=== PATIENT | male | born 1975 | race Caucasian/White ===

== ENCOUNTER 2020-05-15 19:08 | Emergency (ER) | payer OTHER ==
--- NOTE | 2020-05-15 21:09 | ED ---
Fever HPI - General Chief Complaint: Fever Stated Complaint: fever, Headache, dizziness Time Seen by Provider: 05/15/20 20:48 Source: patient, RN notes reviewed Mode of arrival: ambulatory Limitations: no limitations - History of Present Illness Initial Comments: 44-year-old white male, alert and oriented 4, no acute distress, states that he's had a fever on and off since , with sinus congestion, occasional cough. Patient states temperature at home has been up and down as high as 101. Has been taking Tylenol for body aches. Patient denies nausea vomiting or diarrhea, denies chest pain. Patient states he works for [employer]. Has had no sick contacts. Patient states he was cooking dinner and he turned his head he felt very dizzy and went down to the ground no LOC did not hit his head. No injuries. MD Complaint: fever (sinus congestion, headache) -: days(s) (3) Temperature Source: oral Associated Symptoms: headache, rhinorrhea, cough, other (vertigo) Treatments Prior to Arrival: Acetaminophen - Related Data Allergies Allergy/AdvReac Type Severity Reaction Status Date / Time No Known Allergies Allergy Verified 05/15/20 19:14 Review of Systems ROS Statement: Those systems with pertinent positive or pertinent negative responses have been documented in the HPI. ROS Other: All systems not noted in ROS Statement are negative. Past Medical History Past Medical History: Diabetes Mellitus History of Any Multi-Drug Resistant Organisms: None Reported Past Surgical History: Orthopedic Surgery Past Psychological History: No Psychological Hx Reported Smoking Status: Never smoker Past Alcohol Use History: None Reported Past Drug Use History: None Reported General Exam Limitations: no limitations General appearance: alert, in no apparent distress Head exam: Present: atraumatic, normocephalic, normal inspection Eye exam: Present: normal appearance, PERRL, EOMI. Absent: scleral icterus, conjunctival injection, periorbital swelling ENT exam: Present: normal exam, mucous membranes moist Neck exam: Present: normal inspection. Absent: tenderness, meningismus, lymphadenopathy Respiratory exam: Present: normal lung sounds bilaterally. Absent: respiratory distress, wheezes, rales, rhonchi, stridor Cardiovascular Exam: Present: tachycardia GI/Abdominal exam: Present: soft, normal bowel sounds. Absent: distended, tenderness, guarding, rebound, rigid Extremities exam: Present: normal inspection, full ROM, normal capillary refill. Absent: tenderness, pedal edema, joint swelling, calf tenderness Back exam: Present: normal inspection, full ROM. Absent: tenderness, CVA tenderness (R), CVA tenderness (L) Neurological exam: Present: alert, oriented X3, CN II-XII intact Psychiatric exam: Present: normal affect, normal mood Skin exam: Present: warm, dry, intact, normal color. Absent: rash, cyanosis, diaphoretic Course Vital Signs 05/15/20 05/15/20 19:11 22:13 Temperature 98.2 F Pulse Rate 106 H 95 Respiratory 20 20 Rate Blood Pressure 162/87 145/86 O2 Sat by Pulse 97 96 Oximetry Medical Decision Making - Medical Decision Making Patient covid +, pt meets criteria for monoclonal antibodies infusion with BMI greater than 35. Patient agreeable to this treatment plan and will be discharged with follow-up with primary care doctor and directions to return to the emergency room if worsening symptoms. Case discussed with Dr. Bermudez who is agreeable to this plan. Heart rate of 90, oxygen saturation 97% on room air - Lab Data Lab Results 05/15/20 05/15/20 Range/Units 21:00 22:13 POC Glucose (mg/dL) 251 H (75-99) mg/dL POC Glu Market Survey Representative ID Karen Hatch Coronavirus (PCR) Detected A (Not Detectd) - EKG Data EKG shows normal: sinus rhythm, intervals (Ventricular rate of 90, MT interval 0 .168, QRS of 0.88, QTc 0.413) Disposition Clinical Impression: COVID-19 Disposition: HOME SELF-CARE Condition: Good Instructions (If sedation given, give patient instructions): Coronavirus Disease 2019 (COVID-19) Additional Instructions: Increase your fluid intake, take vitamin D, vitamin C, and zinc. Follow-up with her primary care doctor in 1 week. Return to the emergency room if worsening symptoms. Is patient prescribed a controlled substance at d/c from ED?: No Referrals: None,Stated [Primary Care Provider] - 1-2 days
[2020-05-15 22:17] LABS: Glucose,Whole Blood 251 mg/dL (75-99)
[2020-05-15] MEDS ORDERED: BAMLANIVIMAB (EUA) 700 MG, ETESEVIMAB (EUA) 1,400 MG in SODIUM CHLORIDE 0.9% 50 ML IVPB ONE (23:00)
[2020-05-15] MEDS ORDERED: SODIUM CHLORIDE 0.9% 1,000 ML IV ONE (23:14)
[2020-05-16 00:50] VITALS: BP 123/65; PULSE 77; RESP 20; TEMP 98.9
== END 2020-05-16 00:40 | disposition home or self-care (01) ==
LOC: EC 19:08
DX: U07.1 COVID-19 (principal)
CPT/HCPCS: 36415; 93005; 87635; 99283; 96365; 96361; Q0245

== ENCOUNTER 2021-08-21 16:35 | Inpatient (IN) | payer OTHER ==
[2021-08-21] MEDS ORDERED: SODIUM CHLORIDE 0.9% 2,000 ML IV STA (18:53)
[2021-08-21] MEDS ORDERED: VANCOMYCIN IV PER PHARMACY 1 EACH MISC MISCELLANE PRN (18:53)
[2021-08-21] MEDS ORDERED: ONDANSETRON ODT 8 MG TAB.RAPDIS PO STA (18:53)
[2021-08-21] MEDS ORDERED: MORPHINE SULFATE 4 MG/ML SYRINGE IV STA (18:53)
--- NOTE | 2021-08-21 19:00 | ED ---
Abdominal Pain HPI - General Chief Complaint: Abdominal Pain Stated Complaint: Fall, Abd mass Time Seen by Provider: 08/21/21 18:45 Source: patient, RN notes reviewed Mode of arrival: ambulatory Limitations: no limitations - History of Present Illness Initial Comments: This is a pleasant, 45-year-old diabetic male who presents to emergency dep artment complaining of lower abdominal pain. Patient states that 2 days ago he fell into the arm of his couch by accident but had no significant injury. He did have a little irritation to his left lower quadrant area. Patient states he was at work last night doing some ending and lifting and noticed pain in the right lower quadrant area which is now spread across the lower abdomen. Discomfort also radiated to the right lower back and onto the anterior aspect of the right thigh today. Patient has noticed a reddened, hardened area to the lower abdomen. Some shaking chills. No headache, no fever or chills, no changes in vision or hearing, no sore throat or difficulty with speech, no neck pain, no chest pain or shortness of breath,, no nausea or vomiting, no changes in urination or bowel movements, no numbness or tingling, no extremity pain, no skin rashes or lesions. - Related Data Home Medications Medication Instructions Recorded Confirmed Acetaminophen Tab [Tylenol Tab] 1,000 mg PO Q6HR PRN 08/21/21 08/21/21 Ibuprofen [Motrin Ib] 400 - 600 mg PO Q8H PRN 08/21/21 08/21/21 Allergies Allergy/AdvReac Type Severity Reaction Status Date / Time No Known Allergies Allergy Verified 08/21/21 21:10 Review of Systems ROS Statement: Those systems with pertinent positive or pertinent negative responses have been documented in the HPI. ROS Other: All systems not noted in ROS Statement are negative. Past Medical History Past Medical History: Diabetes Mellitus History of Any Multi-Drug Resistant Organisms: None Reported Past Surgical History: Orthopedic Surgery Past Psychological History: No Psychological Hx Reported Smoking Status: Never smoker Past Alcohol Use History: None Reported Past Drug Use History: None Reported General Exam - General Exam Comments Initial Comments: 45-year-old male who appears to be somewhat ill. Patient is tachycardic, appea rs to be in distress. Appears adequate peripheral perfusion. Capillary refill less than 2 seconds. Limitations: no limitations General appearance: in distress Head exam: Present: atraumatic, normocephalic, normal inspection Eye exam: Present: normal appearance, PERRL, EOMI. Absent: scleral icterus, conjunctival injection, periorbital swelling ENT exam: Present: normal exam, mucous membranes moist Neck exam: Present: normal inspection, full ROM. Absent: tenderness, meningismus, lymphadenopathy Respiratory exam: Present: normal lung sounds bilaterally. Absent: respiratory distress, wheezes, rales, rhonchi, stridor, chest wall tenderness, accessory muscle use Cardiovascular Exam: Present: normal rhythm, tachycardia, normal heart sounds. Absent: systolic murmur, diastolic murmur, rubs, gallop, clicks GI/Abdominal exam: Present: soft, tenderness (Tender across the lower abdomen. Erythematous/indurated area noted which is quite widespread.), normal bowel sounds. Absent: distended, guarding, rebound, rigid Extremities exam: Present: normal inspection, full ROM, normal capillary refill. Absent: tenderness, pedal edema, joint swelling, calf tenderness Back exam: Present: normal inspection Neurological exam: Present: alert, oriented X3, CN II-XII intact Psychiatric exam: Present: normal affect, normal mood Skin exam: Present: warm, dry, intact, erythema (Erythema noted across lower abdomen does not involve the groin or scrotal area). Absent: normal color (Positive calor), rash Course Vital Signs 08/21/21 08/21/21 08/21/21 16:56 19:46 21:17 Temperature 99.8 F H Pulse Rate 112 H 108 H 105 H Respiratory 20 18 18 Rate Blood Pressure 150/75 129/85 109/71 O2 Sat by Pulse 97 96 93 L Oximetry - Reevaluation(s) Reevaluation #1: 08/21/21 20:31 Medical record is reviewed Symptoms are unchanged Patient is informed of results and questions answered Patient in no distress No evidence of necrotizing fasciitis on computed tomography scan - Consultations Consultation #1: Case discussed in detail with Dr. Rabago from [facility]. At subs admission of the patient. Medical Decision Making - Medical Decision Making Patient presents with symptomology consistent with cellulitis of lower abdominal wall. Patient did have a mild injury from the arm of a couch 2 days ago after he had a mechanical trip and fall. Unsure if this is related to the infectious process. There is no notable break in skin integrity. Sepsis workup ordered. Antibiotics ordered. Patient has diet-controlled diabetes. Patient has extensive cellulitis to lower abdomen. We'll admit the patient for IV antibiotics and reevaluation. The case was discussed in detail with ED attending physician. Presentation, findings, treatment plan discussed in detail. Patient also seen and assessed by the ED attending physician, Dr. Alvarez - Lab Data Result diagrams: 08/21/21 19:22 08/21/21 19: Lab Results 08/21/21 08/21/21 08/21/21 Range/Units 19: 19: 19:22 WBC 10.5 (3.8-10.6) k/uL RBC 4.55 (4.30-5.90) m/uL Hgb 14.7 (13.0-17.5) gm/dL Hct 42.1 (39.0-53.0) % MCV 92.5 (80.0-100.0) fL MCH 32.2 (25.0-35.0) pg MCHC 34.8 (31.0-37.0) g/dL RDW 14.7 (11.5-15.5) % Plt Count 130 L (150-450) k/uL MPV 7.8 Neutrophils % 88 % Lymphocytes % 7 % Monocytes % 4 % Eosinophils % 0 % Basophils % 0 % Neutrophils # 9.2 H (1.3-7.7) k/uL Lymphocytes # 0.7 L (1.0-4.8) k/uL Monocytes # 0.5 (0-1.0) k/uL Eosinophils # 0.0 (0-0.7) k/uL Basophils # 0.0 (0-0.2) k/uL ESR 41 H (0-15) mm/hr Sodium 131 L (137-145) mmol/L Potassium 4.0 (3.5-5.1) mmol/L Chloride 103 (98-107) mmol/L Carbon Dioxide 24 (22-30) mmol/L Anion Gap 4 mmol/L BUN 8 L (9-20) mg/dL Creatinine 0.52 L (0.66-1.25) mg/dL Est GFR (CKD-EPI)AfAm >90 (>60 ml/min/1.73 sqM) Est GFR (CKD-EPI)NonAf >90 (>60 ml/min/1.73 sqM) Glucose 305 H (74-99) mg/dL Plasma Lactic Acid Reid 1.9 (0.7-2.0) mmol/L Calcium 8.0 L (8.4-10.2) mg/dL Total Bilirubin 2.3 H (0.2-1.3) mg/dL AST 47 (17-59) U/L ALT 28 (4-49) U/L Alkaline Phosphatase 140 H (38-126) U/L C-Reactive Protein 12.9 H (<1.0) mg/dL Total Protein 6.2 L (6.3-8.2) g/dL Albumin 2.8 L (3.5-5.0) g/dL Urine Color Urine Appearance (Clear) Urine pH (5.0-8.0) Ur Specific [place] (1.001-1.035) Urine Protein (Negative) Urine Glucose (UA) (Negative) Urine Ketones (Negative) Urine Blood (Negative) Urine Nitrite (Negative) Urine Bilirubin (Negative) Urine Urobilinogen (<2.0) mg/dL Ur Leukocyte Esterase (Negative) Urine RBC (0-5) /hpf Urine WBC (0-5) /hpf Urine WBC Clumps (None) /hpf Ur Squamous Epith Cells (0-4) /hpf 08/21/21 Range/Units 20:11 WBC (3.8-10.6) k/uL RBC (4.30-5.90) m/uL Hgb (13.0-17.5) gm/dL Hct (39.0-53.0) % MCV (80.0-100.0) fL MCH (25.0-35.0) pg MCHC (31.0-37.0) g/dL RDW (11.5-15.5) % Plt Count (150-450) k/uL MPV Neutrophils % % Lymphocytes % % Monocytes % % Eosinophils % % Basophils % % Neutrophils # (1.3-7.7) k/uL Lymphocytes # (1.0-4.8) k/uL Monocytes # (0-1.0) k/uL Eosinophils # (0-0.7) k/uL Basophils # (0-0.2) k/uL ESR (0-15) mm/hr Sodium (137-145) mmol/L Potassium (3.5-5.1) mmol/L Chloride (98-107) mmol/L Carbon Dioxide (22-30) mmol/L Anion Gap mmol/L BUN (9-20) mg/dL Creatinine (0.66-1.25) mg/dL Est GFR (CKD-EPI)AfAm (>60 ml/min/1.73 sqM) Est GFR (CKD-EPI)NonAf (>60 ml/min/1.73 sqM) Glucose (74-99) mg/dL Plasma Lactic Acid Reid (0.7-2.0) mmol/L Calcium (8.4-10.2) mg/dL Total Bilirubin (0.2-1.3) mg/dL AST (17-59) U/L ALT (4-49) U/L Alkaline Phosphatase (38-126) U/L C-Reactive Protein (<1.0) mg/dL Total Protein (6.3-8.2) g/dL Albumin (3.5-5.0) g/dL Urine Color Yellow Urine Appearance Cloudy (Clear) Urine pH 6.5 (5.0-8.0) Ur Specific [place] 1.040 H (1.001-1.035) Urine Protein 1+ H (Negative) Urine Glucose (UA) 4+ H (Negative) Urine Ketones Trace H (Negative) Urine Blood Small H (Negative) Urine Nitrite Negative (Negative) Urine Bilirubin Negative (Negative) Urine Urobilinogen 6.0 (<2.0) mg/dL Ur Leukocyte Esterase Large H (Negative) Urine RBC 45 H (0-5) /hpf Urine WBC >182 H (0-5) /hpf Urine WBC Clumps Occasional H (None) /hpf Ur Squamous Epith Cells 2 (0-4) /hpf - Radiology Data Radiology results: report reviewed, image reviewed Computed tomography scan shows subcutaneous edema over the anterior abdomen and focal increased density which could relate to phlegmon over the anterior lower abdomen, some mesenteric edema in the abdomen could be developing sinusitis, splenic varices consistent with portal hypertension. Large varicose umbilical vein. Some fat stranding and increased density focally along the anterior lower subcutaneous fat measuring 5 cm. No mention of subcutaneous gas Disposition Clinical Impression: Abdominal wall cellulitis, Uncontrolled diabetes mellitus, Urinary tract infection Disposition: ADMITTED IP TO THIS HOSP Condition: Stable Is patient prescribed a controlled substance at d/c from ED?: No Referrals: None,Stated [Primary Care Provider] - 1-2 days Time of Disposition: 20:32 Decision to Admit Reason: Admit from EC Decision Time: 20:32
[2021-08-21] MEDS ORDERED: PIPERACILLIN-TAZOBACTAM 4.5 GM in SODIUM CHLORIDE 0.9% 100 ML IVPB STA (19:04)
[2021-08-21] MEDS ORDERED: VANCOMYCIN 2,000 MG in SODIUM CHLORIDE 0.9% 500 ML 500 ML IVPB STA (19:08)
[2021-08-21 19:51] LABS: Basophils % (A) 0 %; Eosinophils % (A) 0 %; HCT 42.1 % (39.0-53.0); HGB 14.7 gm/dL (13.0-17.5); Lymphocytes # (A) 0.7 k/uL (1.0-4.8); Lymphocytes % (A) 7 %; MCH 32.2 pg (25.0-35.0); MCHC 34.8 g/dL (31.0-37.0); MCV 92.5 fL (80.0-100.0); Mean Platelet Volume 7.8; Monocytes # (A) 0.5 k/uL (0-1.0); Monocytes % (A) 4 %; Neutrophils # (A) 9.2 k/uL (1.3-7.7); Neutrophils % (A) 88 %; Platelet Count 130 k/uL (150-450); RBC 4.55 m/uL (4.30-5.90); RDW 14.7 % (11.5-15.5); WBC 10.5 k/uL (3.8-10.6)
--- NOTE | 2021-08-21 19:58 | CT ---
EXAMINATION TYPE: CT abdomen pelvis w con DATE OF EXAM: 08/21/2021 COMPARISON: None HISTORY: abdominal pain/abdominal wall cellulitis CT DLP: [id number] mGycm Automated exposure control for dose reduction was used. CONTRAST: Performed with IV Contrast, patient injected with 70ml mL of Isovue 300. Images obtained from the diaphragm to the floor the pelvis with IV contrast. The lung bases are clear. No pleural effusion. There is elevated left diaphragm. Spleen is enlarged a nd measures 21 cm. Liver shows no focal defect. Gallbladder appears normal. No pancreatic mass. The s tomach is intact. There are prominent vessels at the splenic hilum that could relate to varices and p ortal venous hypertension. There is no adrenal mass. Kidneys have normal size. No hydronephrosis. There is 2 mm calculus lower p ole right kidney. Ureters are not dilated. There is no retroperitoneal adenopathy. There is subcutane ous edema over the anterior abdomen. There is some fat stranding and increased density focally in the anterior lower subcutaneous fat. This measures 5 cm. The bladder distends smoothly. No inguinal hernia. No free fluid in the pelvis. There is large tortuo us umbilical vein. No bowel obstruction. There are a few sigmoid diverticula. Appendix appears normal. There is no ascit es. There is some mild mesenteric edema. The lumbar vertebrae have normal alignment. No compression f racture. Posterior element are intact. The hip joints are intact. IMPRESSION: There is moderate splenomegaly. Elevated left diaphragm could relate to some diaphragm paralysis. Nonobstructing right renal calculus. Subcutaneous edema over the anterior abdomen and focal increased density could relate to phlegmon ove r the anterior lower midline abdomen. There is some mild mesenteric edema in the abdomen. This could be developing sign of ascites. Splenic varices that is consistent with portal venous hypertension. 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
[2021-08-21 20:17] LABS: ALT 28 U/L (4-49); AST 47 U/L (17-59); African American GFR (CKD) >90 (>60 ml/min/1.73 sqM); Albumin 2.8 g/dL (3.5-5.0); Alkaline Phosphatase 140 U/L (38-126); Anion Gap 4 mmol/L; Blood Urea Nitrogen 8 mg/dL (9-20); Carbon Dioxide 24 mmol/L (22-30); Chloride 103 mmol/L (98-107); Glucose 305 mg/dL (74-99); Non-African American GFR(CKD) >90 (>60 ml/min/1.73 sqM); Sodium 131 mmol/L (137-145); Total Bilirubin 2.3 mg/dL (0.2-1.3); Total Protein 6.2 g/dL (6.3-8.2)
[2021-08-21 20:33] LABS: Erythrocyte Sedimentation Rate 41 mm/hr (0-15)
[2021-08-21 20:36] LABS: Appearance,Urine Cloudy (Clear); Bilirubin,Urine Negative (Negative); Blood,Urine Small (Negative); Color,Urine Yellow; Glucose,Urine (UA) 4+ (Negative); Ketones,Urine Trace (Negative); Leukocyte Esterase,Urine Large (Negative); Nitrite,Urine Negative (Negative); PH, Urine 6.5 (5.0-8.0); Protein,Urine 1+ (Negative); RBC,Urine 45 /hpf (0-5); Squamous Epithelial Cell,Urine 2 /hpf (0-4); WBC,Urine >182 /hpf (0-5)
[2021-08-21 20:47] LABS: C Reactive Protein 12.9 mg/dL (<1.0)
[2021-08-21] MEDS ORDERED: INSULN ASP PRT/INSULIN ASPART 100 UNIT/ML 10 ML VIAL SQ ONE (21:54)
[2021-08-21] MEDS ORDERED: NALOXONE 0.4 MG/ML 1 ML VIAL IV PRN (22:02)
[2021-08-21] MEDS ORDERED: ONDANSETRON 4 MG/2 ML VIAL IVP PRN (22:02)
[2021-08-21] MEDS: SODIUM CHLORIDE 0.9% 1,000 ML IV SCH (23:00)
[2021-08-22] MEDS: HEPARIN SODIUM,PORCINE/PF 5,000 UNIT/0.5 ML SYRINGE SQ SCH ×4 (01:05→23:02)
[2021-08-22] MEDS ORDERED: diphenhydrAMINE 25 MG CAP PO STA (03:10)
--- NOTE | 2021-08-22 03:29 | P.HPIM ---
History of Present Illness H&P Date: 08/21/21 Chief Complaint: Abdominal pain 45-year-old male with dietary controlled diabetes Patient comes in with couple day history of worsening erythema pain in the lower abdomen he reports incisional lost 60 pounds of weight with exercising and diet after he lost weight he started feeling a lump superficial in his abdominal wall. He recently sustained an accidental fall hit the arm with the couch few days ago he didn't think much of it however yesterday he started noticing increasing erythema and discomfort in the lower abdomen as he was exercising later with lifting weights he noticed excruciating pain in the lower abdomen which continued to get worse today for which she decided to come in for evaluation as he noted that he was having chills today with increased erythema in the lower abdomen and skin became more hard as a big lump that he's feeling in the abdominal wall of the lower abdomen associated with some chills and low-grade fever denies any nausea vomiting denies any other abdominal pain or chest pain denies any trouble breathing denies any hematuria or bloody bowel movement. In the ED he was found to have significant cellulitis and induration of the ab dominal wall blood work showed no leukocytosis but did reveal some elevated bilirubin and blood sugar CT imaging of the abdomen showed fat stranding in the abdominal wall along with evidence of portal venous hypertension and large varicose umbilical vein and splenomegaly also noted to have nonobstructing right renal calculus Urine analysis reflects evidence of irritation to the urinary tract from above- mentioned renal calculus Cultures were obtained in the ED and patient was initiated on vancomycin Review of Systems Pertinent positives as noted in HPI. All other systems were reviewed and are negative Past Medical History Past Medical History: Diabetes Mellitus History of Any Multi-Drug Resistant Organisms: None Reported Past Surgical History: Orthopedic Surgery Past Psychological History: No Psychological Hx Reported Smoking Status: Never smoker Past Alcohol Use History: None Reported Past Drug Use History: None Reported - Past Family History family Family Medical History: No Reported History Medications and Allergies Home Medications Medication Instructions Recorded Confirmed Type Acetaminophen Tab [Tylenol Tab] 1,000 mg PO Q6HR PRN 08/21/21 08/21/21 History Ibuprofen [Motrin Ib] 400 - 600 mg PO Q8H PRN 08/21/21 08/21/21 History Allergies Allergy/AdvReac Type Severity Reaction Status Date / Time No Known Allergies Allergy Verified 08/21/21 21:10 Physical Exam Vitals: Vital Signs Temp Pulse Resp BP Pulse Ox 08/21/21 21:17 105 H 18 109/71 93 L 08/21/21 19:46 108 H 18 129/85 96 08/21/21 16:56 99.8 F H 112 H 20 150/75 97 Intake and Output 08/21/21 08/21/21 08/21/21 06:59 14:59 22:59 Other: Weight 131.542 kg Constitutional: No acute distress, conversant, pleasant Eyes: Anicteric sclerae, moist conjunctiva, Pupils equal round reactive to light ENMT: NC/AT Oropharynx clear, no erythema, or exudates Neck: Supple, no masses, or JVD No carotid bruits No thyromegaly Lungs: Clear to auscultation Clear to percussion Normal respiratory effort, no accessory muscle use Cardiovascular: Heart regular in rate and rhythm, No murmurs, gallops, or rubs No peripheral edema Abdominal: Soft Nontender, no guarding, rebound or rigidity Abdomen moving with respiration Normoactive bowel sounds No hepatomegaly, No splenomegaly No palpable mass No abdominal wall hernia noted Skin: Significant induration and erythema of the lower abdominal wall no open wounds or cuts no drainage tender to palpation warm to the touch otherwise Normal temperature, tone, texture, turgor Extremities: No digital cyanosis No clubbing Pedal pulses intact and symmetrical Radial pulses intact and symmetrical No calf tenderness Psychiatric: Alert and oriented to person, place and time Appropriate affect fair judgement Neuro Muscles Strength 5/5 in all 4 extremities Sensation to light touch grossly present throughout Cranial nerves II-XII grossly intact No focal sensory deficits Lymphatics: no palpable cervical or supraclavicular , or inguinal lymph nodes Results CBC & Chem 7: 08/21/21 19:22 08/21/21 19:22 Labs: Abnormal Lab Results - Last 24 Hours (Table) 08/21/21 08/21/21 08/21/21 Range/Units 19:22 19:22 20:11 Plt Count 130 L (150-450) k/uL Neutrophils # 9.2 H (1.3-7.7) k/uL Lymphocytes # 0.7 L (1.0-4.8) k/uL ESR 41 H (0-15) mm/hr Sodium 131 L (137-145) mmol/L BUN 8 L (9-20) mg/dL Creatinine 0.52 L (0.66-1.25) mg/dL Glucose 305 H (74-99) mg/dL Calcium 8.0 L (8.4-10.2) mg/dL Total Bilirubin 2.3 H (0.2-1.3) mg/dL Alkaline Phosphatase 140 H (38-126) U/L C-Reactive Protein 12.9 H (<1.0) mg/dL Total Protein 6.2 L (6.3-8.2) g/dL Albumin 2.8 L (3.5-5.0) g/dL Ur Specific [place] 1.040 H (1.001-1.035) Urine Protein 1+ H (Negative) Urine Glucose (UA) 4+ H (Negative) Urine Ketones Trace H (Negative) Urine Blood Small H (Negative) Ur Leukocyte Esterase Large H (Negative) Urine RBC 45 H (0-5) /hpf Urine WBC >182 H (0-5) /hpf Urine WBC Clumps Occasional H (None) /hpf Assessment and Plan Assessment: Abdominal wall cellulitis Follow-up cultures Initiated empirically on vancomycin IV fluid hydration with normal saline Pain control with opiates CT of the abdomen showed no evidence of necrotizing fasciitis orderline diabetes Check A1c Insulin sliding scale DVT prophylaxis heparin subcu 3 times a day Full code
[2021-08-22] MEDS ORDERED: PIPERACILLIN-TAZOBACTAM 3.375 GM in SODIUM CHLORIDE 0.9% 100 ML IVPB SCH (04:00)
[2021-08-22 04:01] LABS: Glucose,Whole Blood 278 mg/dL (70-110)
[2021-08-22] MEDS ORDERED: VANCOMYCIN 2,000 MG in SODIUM CHLORIDE 0.9% 500 ML 500 ML IVPB SCH (05:00)
[2021-08-22 05:55] LABS: Basophils % (A) 0 %; Eosinophils % (A) 0 %; HCT 39.3 % (39.0-53.0); HGB 13.6 gm/dL (13.0-17.5); Lymphocytes # (A) 0.9 k/uL (1.0-4.8); Lymphocytes % (A) 9 %; MCH 32.4 pg (25.0-35.0); MCHC 34.6 g/dL (31.0-37.0); MCV 93.6 fL (80.0-100.0); Mean Platelet Volume 8.2; Monocytes # (A) 0.5 k/uL (0-1.0); Monocytes % (A) 5 %; Neutrophils # (A) 9.2 k/uL (1.3-7.7); Neutrophils % (A) 85 %; Platelet Count 121 k/uL (150-450); RDW 14.8 % (11.5-15.5); WBC 10.7 k/uL (3.8-10.6)
[2021-08-22 06:10] LABS: African American GFR (CKD) >90 (>60 ml/min/1.73 sqM); Anion Gap 4 mmol/L; Blood Urea Nitrogen 9 mg/dL (9-20); Calcium 7.5 mg/dL (8.4-10.2); Carbon Dioxide 23 mmol/L (22-30); Chloride 104 mmol/L (98-107); Glucose 250 mg/dL (74-99); Non-African American GFR(CKD) >90 (>60 ml/min/1.73 sqM); Potassium 3.8 mmol/L (3.5-5.1); Sodium 131 mmol/L (137-145)
[2021-08-22 06:42] LABS: Glucose,Whole Blood 248 mg/dL (70-110)
[2021-08-22] MEDS: INSULIN ASPART (NovoLOG) 100 UNIT/ML VIAL SQ SCH ×4 (07:44→22:08)
[2021-08-22 11:41] LABS: Glucose,Whole Blood 313 mg/dL (70-110)
--- NOTE | 2021-08-22 11:46 | P.PN ---
Subjective Patient was examined at bedside denies any fever, chills, nausea or vomiting. He complains of subjective fevers at home. He came in complaining of abdominal cellulitis not really changed over the last 24 hours continues to be on IV antibiotics. Patient states that he lost approximately 100 pounds over the course of 2 years. He stated that he had a small bump and unfortunately had a mechanical fall and soon after notices the cellulitis Objective - Vital Signs Vital signs: Vital Signs Temp 99.0 F 08/22/21 08:00 Pulse 96 08/22/21 08:00 Resp 16 08/22/21 08:00 BP 127/70 08/22/21 08:00 Pulse Ox 93 L 08/22/21 08:00 FiO2 Intake & Output 08/21/21 08/22/21 08/22/21 18:59 06:59 18:59 Weight 131.542 kg 131.542 kg Other: Voiding Method Urinal Urinal - Exam Gen. patient is awake alert oriented 3 Cardio normal S1/S2 Respiratory no wheezing or rhonchi appreciated Abdomen soft, nontender Skin erythema no drainage noted and tender - cellulitis changes Neuro no deficits noted - Labs CBC & Chem 7: 08/22/21 05:29 08/22/21 05:29 Labs: Abnormal Lab Results - Last 24 Hours (Table) 08/21/21 08/21/21 08/21/21 Range/Units 19:22 19:22 20:11 WBC (3.8-10.6) k/uL RBC (4.30-5.90) m/uL Plt Count 130 L (150-450) k/uL Neutrophils # 9.2 H (1.3-7.7) k/uL Lymphocytes # 0.7 L (1.0-4.8) k/uL ESR 41 H (0-15) mm/hr Sodium 131 L (137-145) mmol/L BUN 8 L (9-20) mg/dL Creatinine 0.52 L (0.66-1.25) mg/dL Glucose 305 H (74-99) mg/dL POC Glucose (mg/dL) (70-110) mg/dL Hemoglobin A1c (0.0-6.0) % Calcium 8.0 L (8.4-10.2) mg/dL Total Bilirubin 2.3 H (0.2-1.3) mg/dL Alkaline Phosphatase 140 H (38-126) U/L C-Reactive Protein 12.9 H (<1.0) mg/dL Total Protein 6.2 L (6.3-8.2) g/dL Albumin 2.8 L (3.5-5.0) g/dL Ur Specific [place] 1.040 H (1.001-1.035) Urine Protein 1+ H (Negative) Urine Glucose (UA) 4+ H (Negative) Urine Ketones Trace H (Negative) Urine Blood Small H (Negative) Ur Leukocyte Esterase Large H (Negative) Urine RBC 45 H (0-5) /hpf Urine WBC >182 H (0-5) /hpf Urine WBC Clumps Occasional H (None) /hpf 08/22/21 08/22/21 08/22/21 Range/Units 03:59 05:29 05:29 WBC 10.7 H (3.8-10.6) k/uL RBC 4.20 L (4.30-5.90) m/uL Plt Count 121 L (150-450) k/uL Neutrophils # 9.2 H (1.3-7.7) k/uL Lymphocytes # 0.9 L (1.0-4.8) k/uL ESR (0-15) mm/hr Sodium 131 L (137-145) mmol/L BUN (9-20) mg/dL Creatinine 0.53 L (0.66-1.25) mg/dL Glucose 250 H (74-99) mg/dL POC Glucose (mg/dL) 278 H (70-110) mg/dL Hemoglobin A1c (0.0-6.0) % Calcium 7.5 L (8.4-10.2) mg/dL Total Bilirubin (0.2-1.3) mg/dL Alkaline Phosphatase (38-126) U/L C-Reactive Protein (<1.0) mg/dL Total Protein (6.3-8.2) g/dL Albumin (3.5-5.0) g/dL Ur Specific [place] (1.001-1.035) Urine Protein (Negative) Urine Glucose (UA) (Negative) Urine Ketones (Negative) Urine Blood (Negative) Ur Leukocyte Esterase (Negative) Urine RBC (0-5) /hpf Urine WBC (0-5) /hpf Urine WBC Clumps (None) /hpf 08/22/21 08/22/21 Range/Units 05:29 06:40 WBC (3.8-10.6) k/uL RBC (4.30-5.90) m/uL Plt Count (150-450) k/uL Neutrophils # (1.3-7.7) k/uL Lymphocytes # (1.0-4.8) k/uL ESR (0-15) mm/hr Sodium (137-145) mmol/L BUN (9-20) mg/dL Creatinine (0.66-1.25) mg/dL Glucose (74-99) mg/dL POC Glucose (mg/dL) 248 H (70-110) mg/dL Hemoglobin A1c 9.6 H (0.0-6.0) % Calcium (8.4-10.2) mg/dL Total Bilirubin (0.2-1.3) mg/dL Alkaline Phosphatase (38-126) U/L C-Reactive Protein (<1.0) mg/dL Total Protein (6.3-8.2) g/dL Albumin (3.5-5.0) g/dL Ur Specific [place] (1.001-1.035) Urine Protein (Negative) Urine Glucose (UA) (Negative) Urine Ketones (Negative) Urine Blood (Negative) Ur Leukocyte Esterase (Negative) Urine RBC (0-5) /hpf Urine WBC (0-5) /hpf Urine WBC Clumps (None) /hpf Microbiology - Last 24 Hours (Table) 08/21/21 20:11 Urine Culture - Preliminary Urine,Voided Assessment and Plan Assessment: Assessment: #1 abdominal wall cellulitis #2 diabetes mellitus type 2 with A1c 9.6 #3 hyperlipidemia #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
[2021-08-22] MEDS: MORPHINE SULFATE 4 MG/ML SYRINGE IV PRN (12:54)
[2021-08-22 13:12] VITALS: BMI 41.5
[2021-08-22 16:54] LABS: Glucose,Whole Blood 301 mg/dL (70-110)
[2021-08-22] MEDS: SODIUM CHLORIDE 0.9% 1,000 ML IV SCH ×2 (20:42→21:06)
[2021-08-22 20:43] LABS: Glucose,Whole Blood 331 mg/dL (70-110)
[2021-08-22] MEDS ORDERED: diphenhydrAMINE 50 MG CAP PO PRN (20:52)
[2021-08-22] MEDS ORDERED: INSULIN DETEMIR (LEVEMIR) 100 UNIT/ML SYR SQ SCH (21:00)
[2021-08-22] MEDS: diphenhydrAMINE 25 MG CAP PO PRN (22:09)
--- NOTE | 2021-08-22 22:54 | P.CONS ---
History of Present Illness - Reason for Consult Consult date: 08/22/21 Abdominal wall cellulitis Requesting physician: Americo Jimenez - Chief Complaint Abdominal wall pain swelling and redness x few days - History of Present Illness Pt Is a 45-year-old male presenting to the ER last evening for evaluation of lower abdominal pain apparently has been going on for the last 2 days patient mention that [place] days ago he fell into the arm of his couch by accident did not have any injury he did have little irritation to his left lower quadrant now for the patient has been working lifting and noticed pain in the right lower quadrant radiating across the lower abdominal patient is currently pain to be sharp intensity is almost 8 out of 10 and no radiation with associated swelling redness and no drainage with the symptom the patient presented to hospital on arrival to the ER the patient did have a low-grade fever of 99.8 F, the patient was tachycardic did have a white count of 10.7 with a left shift creatinine has been normal CRP was elevated 12.9 blood culture obtained which are currently pending the patient did have a CT of abdominal pelvis which did shows a subcutaneous edema over the anterior abdominal and focal increased density most likely phlegmon formation no intra-abdominal pathology patient was started on vancomycin and Zosyn has been admitted to hospital infectious disease was consulted for further management of antibiotic therapy Review of Systems Positive point has been mentioned in the HPI rest of the systems are negative Past Medical History Past Medical History: Diabetes Mellitus History of Any Multi-Drug Resistant Organisms: None Reported Past Surgical History: Orthopedic Surgery Past Anesthesia/Blood Transfusion Reactions: No Reported Reaction Past Psychological History: No Psychological Hx Reported Smoking Status: Never smoker Past Alcohol Use History: None Reported Past Drug Use History: None Reported - Past Family History family Family Medical History: No Reported History Medications and Allergies Home Medications Medication Instructions Recorded Confirmed Type Acetaminophen Tab [Tylenol Tab] 1,000 mg PO Q6HR PRN 08/21/21 08/21/21 History Ibuprofen [Motrin Ib] 400 - 600 mg PO Q8H PRN 08/21/21 08/21/21 History Allergies Allergy/AdvReac Type Severity Reaction Status Date / Time peanut Allergy Unknown Nausea & Verified 08/26/21 12:22 Vomiting Physical Exam Vitals: Vital Signs Temp Pulse Pulse Resp BP BP Pulse Ox 08/22/21 08:00 99.0 F 96 16 127/70 93 L 08/21/21 23:49 99.8 F H 104 H 16 127/72 94 L 08/21/21 21:17 105 H 18 109/71 93 L 08/21/21 19:46 108 H 18 129/85 96 08/21/21 16:56 99.8 F H 112 H 20 150/75 97 Intake and Output 08/21/21 08/22/21 08/22/21 22:59 06:59 14:59 Other: Voiding Method Urinal Urinal Weight 131.542 kg 131.542 kg GENERAL DESCRIPTION: Middle-aged male lying in bed, no distress. No tachypnea or accessory muscle of respiration use. HEENT: Shows Pallor , no scleral icterus. Oral mucous membrane is dry. No pharyngeal erythema or thrush NECK: Trachea central, no thyromegaly. LUNGS: Unlabored breathing. Clear to auscultation anteriorly. No wheeze or crackle. HEART: S1, S2, regular rate and rhythm. No loud murmur ABDOMEN: Soft, abdominal wall swelling redness and tenderness , no guarding or rigidity, no organomegaly EXTREMITIES: No edema of feet. SKIN: No rash, no masses palpable. NEUROLOGICAL: The patient is awake, alert, oriented x3, mood and affect normal. Results CBC & Chem 7: 08/26/21 05:35 08/26/21 05:35 Labs: Abnormal Lab Results - Last 24 Hours (Table) 08/21/21 08/21/21 08/21/21 Range/Units 19:22 19:22 20:11 WBC (3.8-10.6) k/uL RBC (4.30-5.90) m/uL Plt Count 130 L (150-450) k/uL Neutrophils # 9.2 H (1.3-7.7) k/uL Lymphocytes # 0.7 L (1.0-4.8) k/uL ESR 41 H (0-15) mm/hr Sodium 131 L (137-145) mmol/L BUN 8 L (9-20) mg/dL Creatinine 0.52 L (0.66-1.25) mg/dL Glucose 305 H (74-99) mg/dL POC Glucose (mg/dL) (70-110) mg/dL Hemoglobin A1c (0.0-6.0) % Calcium 8.0 L (8.4-10.2) mg/dL Total Bilirubin 2.3 H (0.2-1.3) mg/dL Alkaline Phosphatase 140 H (38-126) U/L C-Reactive Protein 12.9 H (<1.0) mg/dL Total Protein 6.2 L (6.3-8.2) g/dL Albumin 2.8 L (3.5-5.0) g/dL Ur Specific [place] 1.040 H (1.001-1.035) Urine Protein 1+ H (Negative) Urine Glucose (UA) 4+ H (Negative) Urine Ketones Trace H (Negative) Urine Blood Small H (Negative) Ur Leukocyte Esterase Large H (Negative) Urine RBC 45 H (0-5) /hpf Urine WBC >182 H (0-5) /hpf Urine WBC Clumps Occasional H (None) /hpf 08/22/21 08/22/21 08/22/21 Range/Units 03:59 05:29 05:29 WBC 10.7 H (3.8-10.6) k/uL RBC 4.20 L (4.30-5.90) m/uL Plt Count 121 L (150-450) k/uL Neutrophils # 9.2 H (1.3-7.7) k/uL Lymphocytes # 0.9 L (1.0-4.8) k/uL ESR (0-15) mm/hr Sodium 131 L (137-145) mmol/L BUN (9-20) mg/dL Creatinine 0.53 L (0.66-1.25) mg/dL Glucose 250 H (74-99) mg/dL POC Glucose (mg/dL) 278 H (70-110) mg/dL Hemoglobin A1c (0.0-6.0) % Calcium 7.5 L (8.4-10.2) mg/dL Total Bilirubin (0.2-1.3) mg/dL Alkaline Phosphatase (38-126) U/L C-Reactive Protein (<1.0) mg/dL Total Protein (6.3-8.2) g/dL Albumin (3.5-5.0) g/dL Ur Specific [place] (1.001-1.035) Urine Protein (Negative) Urine Glucose (UA) (Negative) Urine Ketones (Negative) Urine Blood (Negative) Ur Leukocyte Esterase (Negative) Urine RBC (0-5) /hpf Urine WBC (0-5) /hpf Urine WBC Clumps (None) /hpf 08/22/21 08/22/21 Range/Units 05:29 06:40 WBC (3.8-10.6) k/uL RBC (4.30-5.90) m/uL Plt Count (150-450) k/uL Neutrophils # (1.3-7.7) k/uL Lymphocytes # (1.0-4.8) k/uL ESR (0-15) mm/hr Sodium (137-145) mmol/L BUN (9-20) mg/dL Creatinine (0.66-1.25) mg/dL Glucose (74-99) mg/dL POC Glucose (mg/dL) 248 H (70-110) mg/dL Hemoglobin A1c 9.6 H (0.0-6.0) % Calcium (8.4-10.2) mg/dL Total Bilirubin (0.2-1.3) mg/dL Alkaline Phosphatase (38-126) U/L C-Reactive Protein (<1.0) mg/dL Total Protein (6.3-8.2) g/dL Albumin (3.5-5.0) g/dL Ur Specific [place] (1.001-1.035) Urine Protein (Negative) Urine Glucose (UA) (Negative) Urine Ketones (Negative) Urine Blood (Negative) Ur Leukocyte Esterase (Negative) Urine RBC (0-5) /hpf Urine WBC (0-5) /hpf Urine WBC Clumps (None) /hpf Microbiology - Last 24 Hours (Table) 08/21/21 20:11 Urine Culture - Preliminary Urine,Voided Assessment and Plan (1) Abdominal wall cellulitis Current Visit: Yes Status: Acute Code(s): L03.311 - CELLULITIS OF ABDOMINAL WALL SNOMED Code(s): 03899112 Plan: 1patient presented to hospital with sepsis in this patient who did have a fever low-grade tachycardia mild elevated white count source likely lower abdominal wall cellulitis started with trauma likely from gram-positive skin za less likely risk factor for MRSA or gram-negative infection. 2discontinue Vanco and Zosyn to decrease risk of nephrotoxicity. 3Marked area of redness. 4start the patient cefazolin 2 g every 8 hours. We will follow on clinical condition and cultures to further adjust medication if needed Thank you for this consultation will follow this patient along with you Time with Patient: Greater than 30
[2021-08-23] MEDS: SODIUM CHLORIDE 0.9% 1,000 ML IV SCH ×2 (01:18→12:47)
[2021-08-23 01:53] LABS: Glucose,Whole Blood 216 mg/dL (70-110)
[2021-08-23 07:14] LABS: Glucose,Whole Blood 177 mg/dL (70-110)
[2021-08-23] MEDS: HEPARIN SODIUM,PORCINE/PF 5,000 UNIT/0.5 ML SYRINGE SQ SCH ×2 (08:45→17:03)
[2021-08-23] MEDS: INSULIN ASPART (NovoLOG) 100 UNIT/ML VIAL SQ SCH ×6 (08:45→20:11)
[2021-08-23] MEDS: MORPHINE SULFATE 4 MG/ML SYRINGE IV PRN (09:20)
[2021-08-23 11:40] LABS: Glucose,Whole Blood 243 mg/dL (70-110)
[2021-08-23] MEDS ORDERED: VANCOMYCIN TROUGH DUE 1 EACH MISC MISCELLANE ONE (12:00)
--- NOTE | 2021-08-23 16:05 | US ---
EXAMINATION TYPE: US abdomen limited DATE OF EXAM: 08/23/2021 COMPARISON: CT: 08/21/21 CLINICAL HISTORY: soft tissue loer anterior abdominal r/o abscess. Pt fell Sunday night and noticed r edness and a lump on Sunday. It had worsened on Sunday, so he went to ER. They put him on antibioti cs Sunday night and the redness is getting slightly better. Patient states the pain has gotten better . Hypoechoic area was visualized in area of redness and lump measuring 1.9 x 2.9 x 1.9 cm. Edema noted in area of redness. IMPRESSION: Findings may represent cellulitis, phlegmon, follow-up as indicated. Limited abdomen ult rasound
--- NOTE | 2021-08-23 16:42 | P.PN ---
Subjective Principal diagnosis: 45-year-old male with dietary controlled diabetes Patient comes in with couple day history of worsening erythema pain in the lower abdomen he reports incisional lost 60 pounds of weight with exercising and diet after he lost weight he started feeling a lump superficial in his abdominal wall. He recently sustained an accidental fall hit the arm with the couch few days ago he didn't think much of it however yesterday he started noticing increasing erythema and discomfort in the lower abdomen as he was exercising later with lifting weights he noticed excruciating pain in the lower abdomen which continued to get worse today for which she decided to come in for evaluation as he noted that he was having chills today with increased erythema in the lower abdomen and skin became more hard as a big lump that he's feeling in the abdominal wall of the lower abdomen associated with some chills and low-grade fever denies any nausea vomiting denies any other abdominal pain or chest pain denies any trouble breathing denies any hematuria or bloody bowel movement. In the ED he was found to have significant cellulitis and induration of the abdominal wall blood work showed no leukocytosis but did reveal some elevated bilirubin and blood sugar CT imaging of the abdomen showed fat stranding in the abdominal wall along with evidence of portal venous hypertension and large varicose umbilical vein and splenomegaly also noted to have nonobstructing right renal calculus Urine analysis reflects evidence of irritation to the urinary tract from above- mentioned renal calculus Cultures were obtained in the ED and patient was initiated on vancomycin. Interval history: Patient was seen and examined at the bedside. Still complaining of pain in the lower part of his abdomen. The redness is getting better but the patient still significant. He denies any chest pain or shortness of breath. Blood sugars still uncontrolled. Physical exam General: non toxic, no distress, appears at stated age. Obese Derm: warm, dry Head: atraumatic, normocephalic, symmetric Eyes: EOMI, no lid lag, anicteric sclera Mouth: no lip lesion, mucus membranes moist Cardiovascular: S1S2 reg, no murmur, positive posterior tibial pulse bilateral, Lungs: CTA bilateral, no rhonchi, no rales , no accessory muscle use Abdominal: soft, nontender to palpation, no guarding, no appreciable organomegaly. Lower Abdominal wall cellulitis with induration Ext: no gross muscle atrophy, no edema, no contractures Neuro: CN II-XI grossly intact, no focal neuro deficits Psych: Alert, oriented, appropriate affect Assessment and plan: #Abdominal wall cellulitis -Resume IV cefazolin per infectious disease -Blood culture negative to date -Gen. surgery consulted for possible I&D #Type 2 diabetes mellitus with uncontrolled hyperglycemia -Patient not on any medication at home -A1c 9.6 -He started on basal bolus insulin #Morbid obesity BMI 41 -Weight loss and exercises recommended -Nutrition services consulted #DVT prophylaxis with subcutaneous heparin #Full code Objective - Vital Signs Vital signs: Vital Signs Temp 99 F 08/23/21 13:36 Pulse 98 08/23/21 13:36 Resp 18 08/23/21 13:36 BP 126/75 08/23/21 13:36 Pulse Ox 94 L 08/23/21 13:36 FiO2 Intake & Output 08/22/21 08/23/21 08/23/21 18:59 06:59 18:59 Weight 131.542 kg Other: Voiding Method Urinal Toilet # Voids 5 - Labs CBC & Chem 7: 08/22/21 05:29 08/22/21 05:29 Labs: Abnormal Lab Results - Last 24 Hours (Table) 08/22/21 08/22/21 08/23/21 Range/Units 16:52 20:40 01:51 POC Glucose (mg/dL) 301 H 331 H 216 H (70-110) mg/dL 08/23/21 08/23/21 Range/Units 07:12 11:38 POC Glucose (mg/dL) 177 H 243 H (70-110) mg/dL Microbiology - Last 24 Hours (Table) 08/21/21 20:11 Urine Culture - Preliminary Urine,Voided Presumptive Staph aureus 08/21/21 19:05 Blood Culture - Preliminary Blood No Growth after 24 hours 08/21/21 19:20 Blood Culture - Preliminary Blood No Growth after 24 hours
[2021-08-23 16:51] LABS: Glucose,Whole Blood 251 mg/dL (70-110)
[2021-08-23 20:08] LABS: Glucose,Whole Blood 233 mg/dL (70-110)
[2021-08-23] MEDS ORDERED: INSULIN DETEMIR (LEVEMIR) 100 UNIT/ML SYR SQ SCH (21:00)
[2021-08-24] MEDS: HEPARIN SODIUM,PORCINE/PF 5,000 UNIT/0.5 ML SYRINGE SQ SCH ×3 (00:15→16:52)
[2021-08-24] MEDS: ACETAMINOPHEN TAB 325 MG TAB PO PRN ×2 (01:31→14:11)
[2021-08-24 01:57] LABS: Glucose,Whole Blood 211 mg/dL (70-110)
[2021-08-24] MEDS: SODIUM CHLORIDE 0.9% 1,000 ML IV SCH ×4 (03:03→20:04)
[2021-08-24 06:50] LABS: Glucose,Whole Blood 204 mg/dL (70-110)
[2021-08-24] MEDS: INSULIN ASPART (NovoLOG) 100 UNIT/ML VIAL SQ SCH ×7 (07:08→20:09)
[2021-08-24] MEDS ORDERED: SODIUM CHLORIDE 0.65% NASAL SPRAY 44 ML BTL NASAL PRN (09:06)
--- NOTE | 2021-08-24 11:31 | P.GSCN ---
History of Present Illness Consult date: 08/24/21 History of present illness: CHIEF COMPLAINT: Abdominal wall cellulitis HISTORY OF PRESENT ILLNESS: This is a 45-year-old male who presented with complaints of lower abdominal pain that started on Sunday. Patient reports that he had been at work and his abdomen had been rubbing against the been that he was taking products out of. He reports that it was tender. After working noticed he had increasing pain in the right side of the abdomen. Also noticed some erythema. Pain continued to progress he came into the ER for further evaluation and treatment. He had evidence of abdominal wall cellulitis. He was tachycardic with low-grade fevers. He did have temp last night of 100.1. Dr. Garcia reviewed computed tomography scan and felt that it did show evidence of an abscess. Patient reports improvement in his pain. Discussed some decrease in the erythema that is been marked. Patient denies any nausea vomiting. He is a diabetic. No prior abdominal surgical history. PAST MEDICAL HISTORY: See list. PAST SURGICAL HISTORY: See list. MEDICATIONS: See list. ALLERGIES: See list. SOCIAL HISTORY: No illicit drug use. REVIEW OF SYSTEMS: CONSTITUTIONAL: Denies fever or chills. HEENT: Denies blurred vision, vision changes, or eye pain. Denies hemoptysis CARDIOVASCULAR: Denies chest pain or pressure. RESPIRATORY: No shortness of breath. GASTROINTESTINAL: See HPI for pertinent findings HEMATOLOGIC: Denies bleeding disorders. GENITOURINARY: Denies any blood in urine or increased urinary frequency. SKIN: Denies pruitis. Denies rash. PHYSICAL EXAM: VITAL SIGNS: Reviewed GENERAL: Well-developed in no acute distress. HEENT: No sclera icterus. Extraocular movements grossly intact. Moist buccal mucosa. Head is atraumatic, normocephalic. No nasal drainage. ABDOMEN: Soft. Obese. Patient is erythema across the lower abdomen. The er ythema is decreased from the area that has been marked. There is an area of induration in the right lower abdomen. It's firm and increased redness there. Tender with palpation. No drainage. NEUROLOGIC: Alert and oriented. Cranial nerves II through XII grossly intact. LABORATORY DATA: WBC 10.7 Hgb 13.6 platelets 121 Sodium 131 potassium 3.8 creatinine 0.53 Glucose 204 A1c 9.6 Lactic 1.9 CRP 12.9 IMAGING: Computed tomography scan abdomen and pelvis there is moderate splenomegaly. Left diaphragm elevated could be related to some diaphragm paralysis. Nonobstructing right renal calculus. Subcutaneous edema over the anterior abdomen and focal increased density could relate to phlegmon over the anterior lower midline abdomen there is some mild mesenteric edema in the abdomen. This could be developing sign of ascites. Splenic varices that is consistent with portal venous hypertension. There is a large varicose umbilical hernia. Abdominal ultrasound findings are consistent with cellulitis, phlegmon. ASSESSMENT: 1. Abdominal wall abscess and cellulitis 2. Diabetes mellitus PLAN: -Patient scheduled for incision and drainage of abdominal while abscess tomorrow, 08/25/[address] Garcia -Nothing by mouth after midnight -Continue antibiotics per infectious disease -Continue supportive care Thank you for this consultation Physician Block Saw Operator note has been reviewed by physician. Signing provider agrees with the documented findings, assessment, and plan of care. Past Medical History Past Medical History: Diabetes Mellitus History of Any Multi-Drug Resistant Organisms: None Reported Past Surgical History: Orthopedic Surgery Past Anesthesia/Blood Transfusion Reactions: No Reported Reaction Past Psychological History: No Psychological Hx Reported Smoking Status: Never smoker Past Alcohol Use History: None Reported Past Drug Use History: None Reported - Past Family History family Family Medical History: No Reported History Medications and Allergies Home Medications Medication Instructions Recorded Confirmed Type Acetaminophen Tab [Tylenol Tab] 1,000 mg PO Q6HR PRN 08/21/21 08/21/21 History Ibuprofen [Motrin Ib] 400 - 600 mg PO Q8H PRN 08/21/21 08/21/21 History Allergies Allergy/AdvReac Type Severity Reaction Status Date / Time No Known Allergies Allergy Verified 08/21/21 21:10 Surgical - Exam Vital Signs Temp Pulse Resp BP Pulse Ox 99.8 F H 112 H 20 150/75 97 08/21/21 16:56 08/21/21 16:56 08/21/21 16:56 08/21/21 16:56 08/21/21 16:56 Results - Labs 08/22/21 05:29 08/22/21 05:29 Abnormal Lab Results - Last 24 Hours (Table) 08/23/21 08/23/21 08/23/21 Range/Units 11:38 16:50 20:06 POC Glucose (mg/dL) 243 H 251 H 233 H (70-110) mg/dL 08/24/21 08/24/21 Range/Units 01:55 06:49 POC Glucose (mg/dL) 211 H 204 H (70-110) mg/dL Microbiology - Last 24 Hours (Table) 08/21/21 19:20 Blood Culture - Preliminary Blood No Growth after 48 hours 08/21/21 19:05 Blood Culture - Preliminary Blood No Growth after 48 hours 08/21/21 20:11 Urine Culture - Preliminary Urine,Voided Presumptive Staph aureus
[2021-08-24 11:38] LABS: Glucose,Whole Blood 258 mg/dL (70-110)
--- NOTE | 2021-08-24 13:05 | P.PN ---
Subjective Principal diagnosis: 45-year-old male with dietary controlled diabetes Patient comes in with couple day history of worsening erythema pain in the lower abdomen he reports incisional lost 60 pounds of weight with exercising and diet after he lost weight he started feeling a lump superficial in his abdominal wall. He recently sustained an accidental fall hit the arm with the couch few days ago he didn't think much of it however yesterday he started noticing increasing erythema and discomfort in the lower abdomen as he was exercising later with lifting weights he noticed excruciating pain in the lower abdomen which continued to get worse today for which she decided to come in for evaluation as he noted that he was having chills today with increased erythema in the lower abdomen and skin became more hard as a big lump that he's feeling in the abdominal wall of the lower abdomen associated with some chills and low-grade fever denies any nausea vomiting denies any other abdominal pain or chest pain denies any trouble breathing denies any hematuria or bloody bowel movement. In the ED he was found to have significant cellulitis and induration of the abdominal wall blood work showed no leukocytosis but did reveal some elevated bilirubin and blood sugar CT imaging of the abdomen showed fat stranding in the abdominal wall along with evidence of portal venous hypertension and large varicose umbilical vein and splenomegaly also noted to have nonobstructing right renal calculus Urine analysis reflects evidence of irritation to the urinary tract from above- mentioned renal calculus Cultures were obtained in the ED and patient was initiated on vancomycin. Interval history: Patient was seen and examined at the bedside. Still complaining of pain in the lower part of his abdomen. The redness is getting better but the patient still significant. He denies any chest pain or shortness of breath. Blood sugars still uncontrolled. Physical exam General: non toxic, no distress, appears at stated age. Obese Derm: warm, dry Head: atraumatic, normocephalic, symmetric Eyes: EOMI, no lid lag, anicteric sclera Mouth: no lip lesion, mucus membranes moist Cardiovascular: S1S2 reg, no murmur, positive posterior tibial pulse bilateral, Lungs: CTA bilateral, no rhonchi, no rales , no accessory muscle use Abdominal: soft, nontender to palpation, no guarding, no appreciable organomegaly. Lower Abdominal wall cellulitis with induration Ext: no gross muscle atrophy, no edema, no contractures Neuro: CN II-XI grossly intact, no focal neuro deficits Psych: Alert, oriented, appropriate affect Assessment and plan: #Abdominal wall cellulitis -Resume IV cefazolin per infectious disease -Blood culture negative to date -Gen. surgery consulted for possible I&D #Type 2 diabetes mellitus with uncontrolled hyperglycemia -Patient not on any medication at home -A1c 9.6 -He started on basal bolus insulin #Morbid obesity BMI 41 -Weight loss and exercises recommended -Nutrition services consulted #DVT prophylaxis with subcutaneous heparin #Full code 45-year-old male with dietary controlled diabetes Patient comes in with couple day history of worsening erythema pain in the lower abdomen he reports incisional lost 60 pounds of weight with exercising and diet after he lost weight he started feeling a lump superficial in his abdominal wall. He recently sustained an accidental fall hit the arm with the couch few days ago he didn't think much of it however yesterday he started noticing increasing erythema and discomfort in the lower abdomen as he was exercising later with lifting weights he noticed excruciating pain in the lower abdomen which continued to get worse today for which she decided to come in for evaluation as he noted that he was having chills today with increased erythema in the lower abdomen and skin became more hard as a big lump that he's feeling in the abdominal wall of the lower abdomen associated with some chills and low-grade fever denies any nausea vomiting denies any other abdominal pain or chest pain denies any trouble breathing denies any hematuria or bloody bowel movement. In the ED he was found to have significant cellulitis and induration of the abdominal wall blood work showed no leukocytosis but did reveal some elevated bilirubin and blood sugar CT imaging of the abdomen showed fat stranding in the abdominal wall along with evidence of portal venous hypertension and large varicose umbilical vein and splenomegaly also noted to have nonobstructing right renal calculus Urine analysis reflects evidence of irritation to the urinary tract from above- mentioned renal calculus Cultures were obtained in the ED and patient was initiated on vancomycin. Interval history: Patient was seen and examined at the bedside. Still complaining of pain in the lower part of his abdomen. The redness is getting better but the patient still significant. He denies any chest pain or shortness of breath. Blood sugars still uncontrolled. Physical exam General: non toxic, no distress, appears at stated age. Obese Derm: warm, dry Head: atraumatic, normocephalic, symmetric Eyes: EOMI, no lid lag, anicteric sclera Mouth: no lip lesion, mucus membranes moist Cardiovascular: S1S2 reg, no murmur, positive posterior tibial pulse bilateral, Lungs: CTA bilateral, no rhonchi, no rales , no accessory muscle use Abdominal: soft, nontender to palpation, no guarding, no appreciable organomegaly. Lower Abdominal wall cellulitis with induration Ext: no gross muscle atrophy, no edema, no contractures Neuro: CN II-XI grossly intact, no focal neuro deficits Psych: Alert, oriented, appropriate affect Assessment and plan: #Abdominal wall cellulitis -Resume IV cefazolin per infectious disease -Blood culture negative to date -Gen. surgery consulted for possible I&D #Type 2 diabetes mellitus with uncontrolled hyperglycemia -Patient not on any medication at home -A1c 9.6 -He started on basal bolus insulin #Morbid obesity BMI 41 -Weight loss and exercises recommended -Nutrition services consulted #DVT prophylaxis with subcutaneous heparin #Full code Objective - Vital Signs Vital signs: Vital Signs Temp 98.5 F 08/24/21 07:22 Pulse 79 08/24/21 07:22 Resp 18 08/24/21 07:22 BP 114/69 08/24/21 07:22 Pulse Ox 97 08/24/21 07:22 FiO2 Intake & Output 08/23/21 08/24/21 08/24/21 18:59 06:59 18:59 Intake Total 50 Balance 50 Intake: Intake, IV Titration 50 Amount ceFAZolin 2 gm In Sodium 50 Chloride 0.9% 50 ml @ 100 mls/hr IVPB Q8HR [facility] Rx# :[id number] Other: Voiding Method Toilet Toilet Toilet # Voids 5 - Labs CBC & Chem 7: 08/22/21 05:29 08/22/21 05:29 Labs: Abnormal Lab Results - Last 24 Hours (Table) 08/23/21 08/23/21 08/24/21 Range/Units 16:50 20:06 01:55 POC Glucose (mg/dL) 251 H 233 H 211 H (70-110) mg/dL 08/24/21 08/24/21 Range/Units 06:49 11:36 POC Glucose (mg/dL) 204 H 258 H (70-110) mg/dL Microbiology - Last 24 Hours (Table) 08/21/21 19:20 Blood Culture - Preliminary Blood No Growth after 48 hours 08/21/21 19:05 Blood Culture - Preliminary Blood No Growth after 48 hours 08/21/21 20:11 Urine Culture - Preliminary Urine,Voided Presumptive Staph aureus
--- NOTE | 2021-08-24 15:51 | P.PN ---
Subjective Progress Note Date: 08/23/21 Principal diagnosis: Abdominal wall cellulitis and abscess Patient is a 45-year-old male presenting to Hospital with abdominal wall pain swelling redness has been diagnosed with abdominal wall cellulitis and possible abscess. on today's evaluation that is 08/23/2021, the patient denies having any fever or chills, the patient abdominal wall swelling and redness has slightly decreased most concentrated in the right lower abdominal area, denies any chest pain or shortness of cough and no diarrhea Objective - Vital Signs Vital signs: Vital Signs Temp 99 F 08/23/21 13:36 Pulse 98 08/23/21 13:36 Resp 18 08/23/21 13:36 BP 126/75 08/23/21 13:36 Pulse Ox 94 L 08/23/21 13:36 FiO2 Intake & Output 08/22/21 08/23/21 08/23/21 18:59 06:59 18:59 Weight 131.542 kg Other: Voiding Method Urinal Toilet # Voids 5 - Exam GENERAL DESCRIPTION: Middle-aged male lying in bed in no distress RESPIRATORY SYSTEM: Unlabored breathing , decreased breath sounds at bases HEART: S1 S2 regular rate and rhythm , ABDOMEN: Soft , abdominal wall swelling redness most consistent with right lower abdominal area EXTREMITIES: No edema feet - Labs CBC & Chem 7: 08/22/21 05:29 08/22/21 05:29 Labs: Abnormal Lab Results - Last 24 Hours (Table) 08/22/21 08/22/21 08/23/21 Range/Units 16:52 20:40 01:51 POC Glucose (mg/dL) 301 H 331 H 216 H (70-110) mg/dL 08/23/21 08/23/21 Range/Units 07:12 11:38 POC Glucose (mg/dL) 177 H 243 H (70-110) mg/dL Microbiology - Last 24 Hours (Table) 08/21/21 20:11 Urine Culture - Preliminary Urine,Voided Presumptive Staph aureus 08/21/21 19:05 Blood Culture - Preliminary Blood No Growth after 24 hours 08/21/21 19:20 Blood Culture - Preliminary Blood No Growth after 24 hours Assessment and Plan (1) Abdominal wall cellulitis Current Visit: Yes Status: Acute Code(s): L03.311 - CELLULITIS OF ABDOMINAL WALL SNOMED Code(s): 72992007 Plan: 1patient presented to hospital with sepsis in this patient who did have a fever low-grade tachycardia mild elevated white count source likely lower abdominal wall cellulitis started with trauma likely from gram-positive skin za less likely risk factor for MRSA or gram-negative infection. 2 Marked area of redness. 3the patient to continue with cefazolin 2 g every 8 hours. Surgical evaluation for possible drainage discussed with the admitting physician Time with Patient: Less than 30
--- NOTE | 2021-08-24 15:52 | P.PN ---
Subjective Progress Note Date: 08/24/21 Principal diagnosis: Abdominal wall cellulitis and abscess Patient is a 45-year-old male presenting to Hospital with abdominal wall pain swelling redness has been diagnosed with abdominal wall cellulitis and possible abscess. on today's evaluation that is 08/24/2021, the patient did have a few 100.1 after midnight, the patient is afebrile since then, the patient is complaining of more pain into the right lower abdominal wall area currently with no open wound or any drainage no chest pain shortness of breath or cough and no diarrhea Objective - Vital Signs Vital signs: Vital Signs Temp 98.5 F 08/24/21 07: Pulse 79 08/24/21 07:22 Resp 18 08/24/21 07:22 BP 114/69 08/24/21 07: Pulse Ox 97 08/24/21 07:22 FiO2 Intake & Output 08/23/21 08/24/21 08/24/21 18:59 06:59 18:59 Intake Total 50 Balance 50 Intake: Intake, IV Titration 50 Amount ceFAZolin 2 gm In Sodium 50 Chloride 0.9% 50 ml @ 100 mls/hr IVPB Q8HR [facility] Rx# :[id number] Other: Voiding Method Toilet Toilet Toilet # Voids 5 - Exam GENERAL DESCRIPTION: Middle-aged male lying in bed in no distress RESPIRATORY SYSTEM: Unlabored breathing , decreased breath sounds at bases HEART: S1 S2 regular rate and rhythm , ABDOMEN: Soft , abdominal wall swelling redness most concentrated in right lower abdominal area/tenderness EXTREMITIES: No edema feet - Labs CBC & Chem 7: 08/22/21 05:29 08/22/21 05:29 Labs: Abnormal Lab Results - Last 24 Hours (Table) 08/23/21 08/23/21 08/24/21 Range/Units 16:50 20:06 01:55 POC Glucose (mg/dL) 251 H 233 H 211 H (70-110) mg/dL 08/24/21 08/24/21 Range/Units 06:49 11:36 POC Glucose (mg/dL) 204 H 258 H (70-110) mg/dL Microbiology - Last 24 Hours (Table) 08/21/21 19:20 Blood Culture - Preliminary Blood No Growth after 48 hours 08/21/21 19:05 Blood Culture - Preliminary Blood No Growth after 48 hours 08/21/21 20:11 Urine Culture - Preliminary Urine,Voided Presumptive Staph aureus Assessment and Plan (1) Abdominal wall cellulitis Current Visit: Yes Status: Acute Code(s): L03.311 - CELLULITIS OF ABDOMINAL WALL SNOMED Code(s): 61912577 Plan: 1patient presented to hospital with sepsis in this patient who did have a fever low-grade tachycardia mild elevated white count source likely lower abdominal wall cellulitis started with trauma likely from gram-positive skin za less likely risk factor for MRSA or gram-negative infection. 2 patient has been evaluated by surgery and plan for surgical drainage tomorrow morning at which time culture should be obtained 3the patient to continue with cefazolin 2 g every 8 hours and monitor clinical course closely Time with Patient: Less than 30
[2021-08-24 16:23] LABS: Glucose,Whole Blood 248 mg/dL (70-110)
[2021-08-24 19:59] LABS: Glucose,Whole Blood 258 mg/dL (70-110)
[2021-08-24] MEDS: INSULIN DETEMIR (LEVEMIR) 100 UNIT/ML SYR SQ SCH (20:09)
[2021-08-25] MEDS: HEPARIN SODIUM,PORCINE/PF 5,000 UNIT/0.5 ML SYRINGE SQ SCH ×3 (00:04→17:09)
[2021-08-25] MEDS: ACETAMINOPHEN TAB 325 MG TAB PO PRN ×2 (00:04→07:26)
[2021-08-25 02:22] LABS: Glucose,Whole Blood 261 mg/dL (70-110)
[2021-08-25] MEDS: SODIUM CHLORIDE 0.9% 1,000 ML IV SCH ×3 (03:55→17:19)
[2021-08-25 07:16] LABS: Basophils % (A) 0 %; Eosinophils # (A) 0.2 k/uL (0-0.7); Eosinophils % (A) 3 %; HCT 38.6 % (39.0-53.0); HGB 13.3 gm/dL (13.0-17.5); Lymphocytes # (A) 0.7 k/uL (1.0-4.8); Lymphocytes % (A) 11 %; MCH 31.8 pg (25.0-35.0); MCHC 34.5 g/dL (31.0-37.0); MCV 92.1 fL (80.0-100.0); Mean Platelet Volume 7.9; Monocytes # (A) 0.4 k/uL (0-1.0); Monocytes % (A) 7 %; Neutrophils # (A) 4.7 k/uL (1.3-7.7); Neutrophils % (A) 78 %; Platelet Count 128 k/uL (150-450); RBC 4.19 m/uL (4.30-5.90); RDW 14.3 % (11.5-15.5)
[2021-08-25 07:21] LABS: Glucose,Whole Blood 206 mg/dL (70-110)
[2021-08-25] MEDS: diphenhydrAMINE 25 MG CAP PO PRN (07:25)
[2021-08-25] MEDS: INSULIN ASPART (NovoLOG) 100 UNIT/ML VIAL SQ SCH ×7 (07:27→21:34)
[2021-08-25 07:41] LABS: African American GFR (CKD) >90 (>60 ml/min/1.73 sqM); Anion Gap 2 mmol/L; Blood Urea Nitrogen 10 mg/dL (9-20); Calcium 7.6 mg/dL (8.4-10.2); Carbon Dioxide 27 mmol/L (22-30); Chloride 106 mmol/L (98-107); Glucose 201 mg/dL (74-99); Non-African American GFR(CKD) >90 (>60 ml/min/1.73 sqM); Potassium 3.5 mmol/L (3.5-5.1); Sodium 135 mmol/L (137-145)
[2021-08-25 11:14] LABS: Glucose,Whole Blood 174 mg/dL (70-110)
[2021-08-25] MEDS ORDERED: DEXAMETHASONE SOD PHOSPHATE 4 MG/ML 1 ML VIAL IV ONE (13:59)
[2021-08-25] MEDS ORDERED: ONDANSETRON 4 MG/2 ML VIAL IVP ONE (13:59)
[2021-08-25] MEDS ORDERED: LACTATED RINGERS 1,000 ML IV ONE (13:59)
[2021-08-25] MEDS ORDERED: MIDAZOLAM 2 MG/2 ML VIAL IV PRN (13:59)
[2021-08-25] MEDS ORDERED: LIDOCAINE 1% (10MG/ML) FOR IV START INTRADERMA PRN (13:59)
[2021-08-25] MEDS ORDERED: HYDROmorphone 0.5 MG/0.5 ML SYRINGE IVP PRN (13:59)
[2021-08-25 14:04] LABS: Glucose,Whole Blood 132 mg/dL (70-110)
--- NOTE | 2021-08-25 14:08 | P.PN ---
Subjective Progress Note Date: 08/25/21 45-year-old male admitted 3 days ago with abdominal wall cellulitis. Pain and swelling improving, he had a fever 2 days ago, but has been afebrile for the last 24 hours. He has been nothing by mouth since last night, plan for surgical drainage this afternoon. He is on day 3 of IV cefazolin. No other significant events in the last 24 hours Objective - Vital Signs Vital signs: Vital Signs Temp 99.5 F 08/25/21 13:59 Pulse 94 08/25/21 13:59 Resp 16 08/25/21 13:59 BP 145/73 08/25/21 13:59 Pulse Ox 97 08/25/21 13:59 FiO2 Intake & Output 08/24/21 08/25/21 08/25/21 18:59 06:59 18:59 Other: Voiding Method Toilet Toilet # Voids 6 1 # Bowel Movements 1 - Exam General: Obese male, in no acute distress, awake alert and oriented Derm: warm, dry Head: atraumatic, normocephalic Eyes: EOMI, pupils equal round reactive to light Mouth: no lip lesion, mucus membranes moist Cardiovascular: S1S2 reg, no murmur, positive posterior tibial pulse bilateral, Lungs: CTA bilateral, no rhonchi, no rales , no accessory muscle use Abdominal: soft, nontender to palpation, no guarding, no appreciable organomegaly. Lower Abdominal wall cellulitis with induration, tender to touch locally Ext: no gross muscle atrophy, no edema, no contractures Neuro: CN II-XI grossly intact, no focal neuro deficits Psych: Alert, oriented, appropriate affect - Labs CBC & Chem 7: 08/25/21 06:51 08/25/21 06:51 Labs: Abnormal Lab Results - Last 24 Hours (Table) 08/24/21 08/24/21 08/25/21 Range/Units 16:21 19:58 02:21 RBC (4.30-5.90) m/uL Hct (39.0-53.0) % Plt Count (150-450) k/uL Lymphocytes # (1.0-4.8) k/uL Sodium (137-145) mmol/L Creatinine (0.66-1.25) mg/dL Glucose (74-99) mg/dL POC Glucose (mg/dL) 248 H 258 H 261 H (70-110) mg/dL Calcium (8.4-10.2) mg/dL 08/25/21 08/25/21 08/25/21 Range/Units 06:51 06:51 07:19 RBC 4.19 L (4.30-5.90) m/uL Hct 38.6 L (39.0-53.0) % Plt Count 128 L (150-450) k/uL Lymphocytes # 0.7 L (1.0-4.8) k/uL Sodium 135 L (137-145) mmol/L Creatinine 0.48 L (0.66-1.25) mg/dL Glucose 201 H (74-99) mg/dL POC Glucose (mg/dL) 206 H (70-110) mg/dL Calcium 7.6 L (8.4-10.2) mg/dL 08/25/21 08/25/21 Range/Units 11:12 14:03 RBC (4.30-5.90) m/uL Hct (39.0-53.0) % Plt Count (150-450) k/uL Lymphocytes # (1.0-4.8) k/uL Sodium (137-145) mmol/L Creatinine (0.66-1.25) mg/dL Glucose (74-99) mg/dL POC Glucose (mg/dL) 174 H 132 H (70-110) mg/dL Calcium (8.4-10.2) mg/dL Microbiology - Last 24 Hours (Table) 08/21/21 20:11 Urine Culture - Final Urine,Voided Staphylococcus aureus 08/21/21 19:20 Blood Culture - Preliminary Blood No Growth after 72 hours 08/21/21 19:05 Blood Culture - Preliminary Blood No Growth after 72 hours Assessment and Plan Plan: #Abdominal wall cellulitis -Resume IV cefazolin per infectious disease -Blood culture negative to date - I&D this afternoon per general surgery -Antibiotics will be adjusted based on surgical wound cultures #Type 2 diabetes mellitus with uncontrolled hyperglycemia -Patient not on any medication at home -A1c 9.6 -He started on basal bolus insulin -diabetic diet #Morbid obesity BMI 41 -Weight loss and exercises recommended -Nutrition services consulted #DVT prophylaxis with subcutaneous heparin #Full code Time with Patient: Less than 30
[2021-08-25] MEDS ORDERED: fentaNYL (PF) 50 MCG/ML 2 ML AMP ONE (14:44)
[2021-08-25] MEDS ORDERED: LIDOCAINE 2% INJ 20 MG/ML (2 ML VIAL) ONE (14:44)
[2021-08-25] MEDS ORDERED: ROCURONIUM 10 MG/ML (5 ML VIAL) IV ONE (14:44)
[2021-08-25] MEDS ORDERED: PROPOFOL 10 MG/ML 20 ML VIAL IV ONE (14:44)
[2021-08-25] MEDS ORDERED: MIDAZOLAM 2 MG/2 ML VIAL ONE (14:44)
[2021-08-25] MEDS ORDERED: SUCCINYLCHOLINE CHLORIDE VIAL 200 MG/10 ML VIAL IV ONE (14:44)
[2021-08-25] MEDS ORDERED: NEOSTIGMINE 1 MG/ML 10 ML VIAL ONE (14:44)
[2021-08-25] MEDS ORDERED: GLYCOPYRROLATE 0.2 MG/ML 2 ML VIAL ONE (14:44)
--- NOTE | 2021-08-25 15:34 | P.OP ---
Date of Procedure: 08/25/21 Procedure(s) Performed: PREOPERATIVE DIAGNOSIS: Abdominal wall abscess POSTOPERATIVE DIAGNOSIS: Same PROCEDURE: Incision and drainage of abdominal wall abscess SURGEON: Radha EBL: 5 mL ANESTHESIA: Gen. COMPLICATIONS: None OPERATIVE PROCEDURE: Patient place never table in the supine position. The patient lower abdominal wall was prepped and draped sterilely. A horizontal incision was made overlying the fluctuant area in the right lower quadrant. Entrance into a abscess cavity occurred approximately 2-3 cm deep to the skin surface. Purulence was evacuated and cultured. The area was irrigated with saline. The septations were broken up manually. The wound was then packed with a lightly moistened Kerlix roll. Sterile outer dressings applied. DISPOSITION: Stable to recovery room
[2021-08-25 17:07] LABS: Glucose,Whole Blood 190 mg/dL (70-110)
[2021-08-25] MEDS: LACTATED RINGERS 1,000 ML IV SCH (17:19)
[2021-08-25 20:56] LABS: Glucose,Whole Blood 263 mg/dL (70-110)
[2021-08-25] MEDS: INSULIN DETEMIR (LEVEMIR) 100 UNIT/ML SYR SQ SCH (21:34)
[2021-08-26] MEDS: HEPARIN SODIUM,PORCINE/PF 5,000 UNIT/0.5 ML SYRINGE SQ SCH ×3 (01:54→16:34)
[2021-08-26] MEDS: ACETAMINOPHEN TAB 325 MG TAB PO PRN ×2 (01:54→12:51)
[2021-08-26] MEDS: SODIUM CHLORIDE 0.9% 1,000 ML IV SCH ×3 (03:36→20:44)
[2021-08-26 07:01] LABS: Glucose,Whole Blood 224 mg/dL (70-110)
[2021-08-26] MEDS: LACTATED RINGERS 1,000 ML IV SCH (07:40)
[2021-08-26] MEDS: INSULIN ASPART (NovoLOG) 100 UNIT/ML VIAL SQ SCH ×7 (07:51→21:05)
[2021-08-26 09:09] LABS: African American GFR (CKD) 151.7 (60.0-200.0); Albumin 2.4 g/dL (3.8-4.9); Albumin/Globulin Ratio 0.86 (1.60-3.17); BUN/Creat Ratio 22.4 Ratio (12.00-20.00); Blood Urea Nitrogen 11.2 mg/dL (9.0-27.0); Calcium 7.8 mg/dL (8.7-10.3); Globulin 2.8 g/dL (1.6-3.3); Non-African American GFR(CKD) 130.9 (60.0-200.0); Total Bilirubin 0.9 mg/dL (0.30-1.20); Total Protein 5.2 g/dL (6.2-8.2)
[2021-08-26 09:27] LABS: Basophils # (A) 0.02 X 10*3/uL (0.00-0.10); Basophils % (A) 0.2 %; Eosinophils # (A) 0 X 10*3/uL (0.04-0.35); Eosinophils % (A) 0 %; HCT 39.4 % (39.6-50.0); HGB 13.3 g/dL (13.0-17.0); Immature Grans, Automated 0.6 %; Lymphocytes # (A) 0.73 X 10*3/uL (0.90-5.00); Lymphocytes % (A) 8.5 %; MCH 30.9 pg (27.0-32.0); MCHC 33.8 g/dL (32.0-37.0); MCV 91.6 fL (80.0-97.0); Mean Platelet Volume 10.6 fL (9.5-12.2); Monocytes # (A) 0.43 X 10*3/uL (0.20-1.00); NRBC Per 100 WBC 0 /100 WBCS (0.0-0.0); Neutrophils # (A) 7.37 X 10*3/uL (1.80-7.70); Neutrophils % (A) 85.7 %; Platelet Count 143 X 10*3/uL (140-440); RDW 14.4 % (11.5-14.5)
[2021-08-26] MEDS ORDERED: BENZOCAINE/MENTHOL LOZENG 1 EACH LOZENGE MUCOUS MEM PRN (11:13)
[2021-08-26 11:43] LABS: Glucose,Whole Blood 203 mg/dL (70-110)
--- NOTE | 2021-08-26 12:49 | P.PN ---
Subjective Progress Note Date: 08/26/21 CHIEF COMPLAINT: Abdominal wall abscess HISTORY OF PRESENT ILLNESS: Patient is status post incision and drainage of abdominal wall abscess. Postop day #1. Patient reports a decrease in his abdominal pain. He denies any nausea or vomiting. He has been up and ambulating. Afebrile. WBC 8.60 Hgb 13.3 platelets 143 glucose 233 PHYSICAL EXAM: VITAL SIGNS: Reviewed. GENERAL: Well-developed in no acute distress. HEENT: No sclera icterus. Extraocular movements grossly intact. Moist buccal mucosa. Head is atraumatic, normocephalic. ABDOMEN: Soft. Obese Nondistended. Decrease in tenderness with palpation. Decrease in erythema. Dressing shows serosanguineous drainage. NEUROLOGIC: Alert and oriented. Cranial nerves II through XII grossly intact. ASSESSMENT: 1. Abdominal wall abscess status post incision and drainage 2. Diabetes mellitus PLAN: -Okay for patient to shower -Continue local wound care -Antibiotics per ID service -Follow up on culture results -Encouraged patient to ambulate Physician Director Perioperative note has been reviewed by physician. Signing provider agrees with the documented findings, assessment, and plan of care. I have personally seen and examined the patient, reviewed the ROR ENGINEER /PAs history, exam and MDM and agree with the assessment and plan as written. Based on total visit time, I have performed more than 50% of the visit. As above: Patient says he feels better after the incision and drainage yesterday. He did shower today. Gram stain shows gram-positive cocci. Dressing changes to begin today. Continue local wound care. Continue antibiotics per infectious disease. Follow cultures. Objective - Vital Signs Vital signs: Vital Signs Temp 97.6 F 08/26/21 08:00 Pulse 80 08/26/21 08:00 Resp 16 08/26/21 08:00 BP 124/68 08/26/21 08:00 Pulse Ox 95 08/26/21 08:00 FiO2 Intake & Output 08/25/21 08/26/21 08/26/21 18:59 06:59 18:59 Intake Total 700 Output Total 10 900 Balance 690 -900 Weight 131.542 kg Intake: IV 700 Output: Urine 900 Estimated Blood Loss 10 Other: Voiding Method Toilet # Voids 5 1 # Bowel Movements 1 0 - Labs CBC & Chem 7: 08/26/21 05:35 08/26/21 05:35 Labs: Abnormal Lab Results - Last 24 Hours (Table) 08/25/21 08/25/21 08/25/21 Range/Units 14:03 17:06 20:49 RBC (4.40-5.60) X 10*6/uL Hct (39.6-50.0) % Immature Gran # (0.00-0.04) X 10*3/uL Lymphocytes # (0.90-5.00) X 10*3/uL Eosinophils # (0.04-0.35) X 10*3/uL Anion Gap (10.00-18.00) mmol/L Creatinine (0.6-1.5) mg/dL BUN/Creatinine Ratio (12.00-20.00) Ratio Glucose (70-110) mg/dL POC Glucose (mg/dL) 132 H 190 H 263 H (70-110) mg/dL Calcium (8.7-10.3) mg/dL Total Protein (6.2-8.2) g/dL Albumin (3.8-4.9) g/dL Albumin/Globulin Ratio (1.60-3.17) g/dL 08/26/21 08/26/21 08/26/21 Range/Units 05:35 05:35 06:59 RBC 4.30 L (4.40-5.60) X 10*6/uL Hct 39.4 L (39.6-50.0) % Immature Gran # 0.05 H (0.00-0.04) X 10*3/uL Lymphocytes # 0.73 L (0.90-5.00) X 10*3/uL Eosinophils # 0 L (0.04-0.35) X 10*3/uL Anion Gap 9.00 L (10.00-18.00) mmol/L Creatinine 0.5 L (0.6-1.5) mg/dL BUN/Creatinine Ratio 22.40 H (12.00-20.00) Ratio Glucose 233 H (70-110) mg/dL POC Glucose (mg/dL) 224 H (70-110) mg/dL Calcium 7.8 L (8.7-10.3) mg/dL Total Protein 5.2 L (6.2-8.2) g/dL Albumin 2.4 L (3.8-4.9) g/dL Albumin/Globulin Ratio 0.86 L (1.60-3.17) g/dL 08/26/21 Range/Units 11:42 RBC (4.40-5.60) X 10*6/uL Hct (39.6-50.0) % Immature Gran # (0.00-0.04) X 10*3/uL Lymphocytes # (0.90-5.00) X 10*3/uL Eosinophils # (0.04-0.35) X 10*3/uL Anion Gap (10.00-18.00) mmol/L Creatinine (0.6-1.5) mg/dL BUN/Creatinine Ratio (12.00-20.00) Ratio Glucose (70-110) mg/dL POC Glucose (mg/dL) 203 H (70-110) mg/dL Calcium (8.7-10.3) mg/dL Total Protein (6.2-8.2) g/dL Albumin (3.8-4.9) g/dL Albumin/Globulin Ratio (1.60-3.17) g/dL Microbiology - Last 24 Hours (Table) 08/25/21 15:28 Gram Stain - Preliminary Abdomen Wound Culture - Preliminary 08/25/21 15:28 Anaerobic Culture - Preliminary Abdomen 08/21/21 19:20 Blood Culture - Preliminary Blood No Growth after 96 hours 08/21/21 19:05 Blood Culture - Preliminary Blood No Growth after 96 hours
--- NOTE | 2021-08-26 17:01 | P.PN ---
Subjective Progress Note Date: 08/26/21 Postop day #1 status post abdominal incision and drainage. Cultures obtained and are still pending. Patient reports significant improvement in his abdominal wall pain. He has been afebrile, vital signs of in stable. He is tolerating a regular diet and has had bowel movements since surgery. Overall doing fairly well. Objective - Vital Signs Vital signs: Vital Signs Temp 98.4 F 08/26/21 14:00 Pulse 89 08/26/21 14:00 Resp 17 08/26/21 14:00 BP 153/79 08/26/21 14:00 Pulse Ox 95 08/26/21 14:00 FiO2 Intake & Output 08/25/21 08/26/21 08/26/21 18:59 06:59 18:59 Intake Total 700 Output Total 10 900 Balance 690 -900 Weight 131.542 kg Intake: IV 700 Output: Urine 900 Estimated Blood Loss 10 Other: Voiding Method Toilet # Voids 5 1 # Bowel Movements 1 0 - Exam General: Obese male, in no acute distress, awake alert and oriented Derm: warm, dry Head: atraumatic, normocephalic Eyes: EOMI, pupils equal round reactive to light Mouth: no lip lesion, mucus membranes moist Cardiovascular: S1S2 reg, no murmur, positive posterior tibial pulse bilateral, Lungs: CTA bilateral, no rhonchi, no rales , no accessory muscle use Abdominal: Midabdominal wall dressing in place, one appears to be intact, no discharge, no bleeding, minimal tenderness, erythema and edema have improved Ext: no gross muscle atrophy, no edema, no contractures Neuro: CN II-XI grossly intact, no focal neuro deficits Psych: Alert, oriented, appropriate affect - Labs CBC & Chem 7: 08/26/21 05:35 08/26/21 05:35 Labs: Abnormal Lab Results - Last 24 Hours (Table) 08/25/21 08/25/21 08/26/21 Range/Units 17:06 20:49 05:35 RBC 4.30 L (4.40-5.60) X 10*6/uL Hct 39.4 L (39.6-50.0) % Immature Gran # 0.05 H (0.00-0.04) X 10*3/uL Lymphocytes # 0.73 L (0.90-5.00) X 10*3/uL Eosinophils # 0 L (0.04-0.35) X 10*3/uL Anion Gap (10.00-18.00) mmol/L Creatinine (0.6-1.5) mg/dL BUN/Creatinine Ratio (12.00-20.00) Ratio Glucose (70-110) mg/dL POC Glucose (mg/dL) 190 H 263 H (70-110) mg/dL Calcium (8.7-10.3) mg/dL Total Protein (6.2-8.2) g/dL Albumin (3.8-4.9) g/dL Albumin/Globulin Ratio (1.60-3.17) g/dL 08/26/21 08/26/21 08/26/21 Range/Units 05:35 06:59 11:42 RBC (4.40-5.60) X 10*6/uL Hct (39.6-50.0) % Immature Gran # (0.00-0.04) X 10*3/uL Lymphocytes # (0.90-5.00) X 10*3/uL Eosinophils # (0.04-0.35) X 10*3/uL Anion Gap 9.00 L (10.00-18.00) mmol/L Creatinine 0.5 L (0.6-1.5) mg/dL BUN/Creatinine Ratio 22.40 H (12.00-20.00) Ratio Glucose 233 H (70-110) mg/dL POC Glucose (mg/dL) 224 H 203 H (70-110) mg/dL Calcium 7.8 L (8.7-10.3) mg/dL Total Protein 5.2 L (6.2-8.2) g/dL Albumin 2.4 L (3.8-4.9) g/dL Albumin/Globulin Ratio 0.86 L (1.60-3.17) g/dL Microbiology - Last 24 Hours (Table) 08/25/21 15:28 Gram Stain - Preliminary Abdomen Wound Culture - Preliminary 08/25/21 15:28 Anaerobic Culture - Preliminary Abdomen 08/21/21 19:20 Blood Culture - Preliminary Blood No Growth after 96 hours 08/21/21 19:05 Blood Culture - Preliminary Blood No Growth after 96 hours Assessment and Plan Plan: #Abdominal wall cellulitis -Postop day #1 status post incision and drainage -Follow up on wound cultures -Resume IV cefazolin for now, antibiotics will be adjusted accordingly -Blood culture negative to date #Type 2 diabetes mellitus with uncontrolled hyperglycemia -Patient not on any medication at home -A1c 9.6 -He started on basal bolus insulin -diabetic diet #Morbid obesity BMI 41 -Weight loss and exercises recommended -Nutrition services consulted #DVT prophylaxis with subcutaneous heparin #Full code Time with Patient: Less than 30
[2021-08-26 17:05] LABS: Glucose,Whole Blood 258 mg/dL (70-110)
[2021-08-26] MEDS: metFORMIN 500 MG TAB PO SCH (17:23)
[2021-08-26 20:39] LABS: Glucose,Whole Blood 264 mg/dL (70-110)
[2021-08-26] MEDS: MORPHINE SULFATE 4 MG/ML SYRINGE IV PRN (20:46)
[2021-08-26] MEDS: INSULIN DETEMIR (LEVEMIR) 100 UNIT/ML SYR SQ SCH (21:05)
--- NOTE | 2021-08-26 23:43 | P.PN ---
Subjective Progress Note Date: 08/25/21 Principal diagnosis: Abdominal wall cellulitis and abscess Patient is a 45-year-old male presenting to Hospital with abdominal wall pain swelling redness has been diagnosed with abdominal wall cellulitis and possible abscess. Patient is scheduled for surgical drainage of abdominal wall abscess today on today's evaluation that is 08/25/2021, the patient is afebrile today, the patient pain to the right lower abdominal wall has slightly decreased in intensity, there is no drainage no chest pain shortness of breath or cough and no diarrhea Objective - Vital Signs Vital signs: Vital Signs Temp 97.8 F 08/25/21 07:41 Pulse 70 08/25/21 07:41 Resp 18 08/25/21 07:41 BP 91/42 08/25/21 07:41 Pulse Ox 96 08/25/21 07:41 FiO2 Intake & Output 08/24/21 08/25/21 08/25/21 18:59 06:59 18:59 Other: Voiding Method Toilet Toilet # Voids 6 1 # Bowel Movements 1 - Exam GENERAL DESCRIPTION: Middle-aged male lying in bed in no distress RESPIRATORY SYSTEM: Unlabored breathing , decreased breath sounds at bases HEART: S1 S2 regular rate and rhythm , ABDOMEN: Soft , abdominal wall swelling redness most concentrated in right lower abdominal area/tenderness EXTREMITIES: No edema feet - Labs CBC & Chem 7: 08/26/21 05:35 08/26/21 05:35 Labs: Abnormal Lab Results - Last 24 Hours (Table) 08/24/21 08/24/21 08/24/21 Range/Units 11:36 16:21 19:58 RBC (4.30-5.90) m/uL Hct (39.0-53.0) % Plt Count (150-450) k/uL Lymphocytes # (1.0-4.8) k/uL Sodium (137-145) mmol/L Creatinine (0.66-1.25) mg/dL Glucose (74-99) mg/dL POC Glucose (mg/dL) 258 H 248 H 258 H (70-110) mg/dL Calcium (8.4-10.2) mg/dL 08/25/21 08/25/21 08/25/21 Range/Units 02:21 06:51 06:51 RBC 4.19 L (4.30-5.90) m/uL Hct 38.6 L (39.0-53.0) % Plt Count 128 L (150-450) k/uL Lymphocytes # 0.7 L (1.0-4.8) k/uL Sodium 135 L (137-145) mmol/L Creatinine 0.48 L (0.66-1.25) mg/dL Glucose 201 H (74-99) mg/dL POC Glucose (mg/dL) 261 H (70-110) mg/dL Calcium 7.6 L (8.4-10.2) mg/dL 08/25/21 08/25/21 Range/Units 07:19 11:12 RBC (4.30-5.90) m/uL Hct (39.0-53.0) % Plt Count (150-450) k/uL Lymphocytes # (1.0-4.8) k/uL Sodium (137-145) mmol/L Creatinine (0.66-1.25) mg/dL Glucose (74-99) mg/dL POC Glucose (mg/dL) 206 H 174 H (70-110) mg/dL Calcium (8.4-10.2) mg/dL Microbiology - Last 24 Hours (Table) 08/21/21 20:11 Urine Culture - Final Urine,Voided Staphylococcus aureus 08/21/21 19:20 Blood Culture - Preliminary Blood No Growth after 72 hours 08/21/21 19:05 Blood Culture - Preliminary Blood No Growth after 72 hours Assessment and Plan (1) Abdominal wall cellulitis Current Visit: Yes Status: Acute Code(s): L03.311 - CELLULITIS OF ABDOMINAL WALL SNOMED Code(s): 21478270 Plan: 1patient presented to hospital with sepsis in this patient who did have a fever low-grade tachycardia mild elevated white count source likely lower abdominal wall cellulitis started with trauma likely from gram-positive skin za less likely risk factor for MRSA or gram-negative infection. 2 patient has been evaluated by surgery and plan for surgical drainage this afternoon at which time deep culture should be obtained 3the patient seemed to showing some clinical improvement and will continue with cefazolin 2 g every 8 hours and monitor clinical course closely Time with Patient: Less than 30
--- NOTE | 2021-08-26 23:46 | P.PN ---
Subjective Progress Note Date: 08/26/21 Principal diagnosis: Abdominal wall cellulitis and abscess Patient is a 45-year-old male presenting to Hospital with abdominal wall pain swelling redness has been diagnosed with abdominal wall cellulitis and possible abscess. Patient is status post surgical drainage of abdominal wall abscess and cultures completed on 08/25/2021 on today's evaluation that is 08/26/2021, the patient remains to be afebrile, the patient pain to the right lower abdominal wall has decreased in intensity, the patient denies chest pain shortness of breath or cough and no diarrhea Objective - Vital Signs Vital signs: Vital Signs Temp 97.6 F 08/26/21 08:00 Pulse 80 08/26/21 08:00 Resp 16 08/26/21 08:00 BP 124/68 08/26/21 08:00 Pulse Ox 95 08/26/21 08:00 FiO2 Intake & Output 08/25/21 08/26/21 08/26/21 18:59 06:59 18:59 Intake Total 700 Output Total 10 900 Balance 690 -900 Intake: IV 700 Output: Urine 900 Estimated Blood Loss 10 Other: Voiding Method Toilet # Voids 5 1 # Bowel Movements 1 0 - Exam GENERAL DESCRIPTION: Middle-aged male lying in bed in no distress RESPIRATORY SYSTEM: Unlabored breathing , decreased breath sounds at bases HEART: S1 S2 regular rate and rhythm , ABDOMEN: Soft , right lower abdominal wall wound post surgical drainage surrounding induration has improved no purulent drainage EXTREMITIES: No edema feet - Labs CBC & Chem 7: 08/26/21 05:35 08/26/21 05:35 Labs: Abnormal Lab Results - Last 24 Hours (Table) 08/25/21 08/25/21 08/25/21 Range/Units 14:03 17:06 20:49 RBC (4.40-5.60) X 10*6/uL Hct (39.6-50.0) % Immature Gran # (0.00-0.04) X 10*3/uL Lymphocytes # (0.90-5.00) X 10*3/uL Eosinophils # (0.04-0.35) X 10*3/uL Anion Gap (10.00-18.00) mmol/L Creatinine (0.6-1.5) mg/dL BUN/Creatinine Ratio (12.00-20.00) Ratio Glucose (70-110) mg/dL POC Glucose (mg/dL) 132 H 190 H 263 H (70-110) mg/dL Calcium (8.7-10.3) mg/dL Total Protein (6.2-8.2) g/dL Albumin (3.8-4.9) g/dL Albumin/Globulin Ratio (1.60-3.17) g/dL 08/26/21 08/26/21 08/26/21 Range/Units 05:35 05:35 06:59 RBC 4.30 L (4.40-5.60) X 10*6/uL Hct 39.4 L (39.6-50.0) % Immature Gran # 0.05 H (0.00-0.04) X 10*3/uL Lymphocytes # 0.73 L (0.90-5.00) X 10*3/uL Eosinophils # 0 L (0.04-0.35) X 10*3/uL Anion Gap 9.00 L (10.00-18.00) mmol/L Creatinine 0.5 L (0.6-1.5) mg/dL BUN/Creatinine Ratio 22.40 H (12.00-20.00) Ratio Glucose 233 H (70-110) mg/dL POC Glucose (mg/dL) 224 H (70-110) mg/dL Calcium 7.8 L (8.7-10.3) mg/dL Total Protein 5.2 L (6.2-8.2) g/dL Albumin 2.4 L (3.8-4.9) g/dL Albumin/Globulin Ratio 0.86 L (1.60-3.17) g/dL Microbiology - Last 24 Hours (Table) 08/25/21 15:28 Gram Stain - Preliminary Abdomen Wound Culture - Preliminary 08/25/21 15:28 Anaerobic Culture - Preliminary Abdomen 08/21/21 19:20 Blood Culture - Preliminary Blood No Growth after 96 hours 08/21/21 19:05 Blood Culture - Preliminary Blood No Growth after 96 hours Assessment and Plan (1) Abdominal wall cellulitis Current Visit: Yes Status: Acute Code(s): L03.311 - CELLULITIS OF ABDOMINAL WALL SNOMED Code(s): 26246057 Plan: 1patient presented to hospital with sepsis in this patient who did have a fever low-grade tachycardia mild elevated white count source likely lower abdominal wall cellulitis started with trauma likely from gram-positive skin za less likely risk factor for MRSA or gram-negative infection. 2 patient has been evaluated by surgery and is status post surgical drainage and deep culture which are currently pending 3the patient seemed to showing some clinical improvement and will continue with cefazolin 2 g every 8 hours and will adjust antibiotics Further on the basi s of culture local care of abdominal wound with Aquacel silver packing Time with Patient: Less than 30
[2021-08-27] MEDS: HEPARIN SODIUM,PORCINE/PF 5,000 UNIT/0.5 ML SYRINGE SQ SCH ×4 (01:15→22:09)
[2021-08-27 02:36] LABS: Glucose,Whole Blood 171 mg/dL (70-110)
[2021-08-27] MEDS: SODIUM CHLORIDE 0.9% 1,000 ML IV SCH ×2 (03:06→13:35)
[2021-08-27 07:11] LABS: Glucose,Whole Blood 120 mg/dL (70-110)
[2021-08-27] MEDS: LACTATED RINGERS 1,000 ML IV SCH (08:21)
[2021-08-27] MEDS: INSULIN ASPART (NovoLOG) 100 UNIT/ML VIAL SQ SCH ×7 (08:22→21:12)
[2021-08-27] MEDS: metFORMIN 500 MG TAB PO SCH ×2 (08:59→17:20)
[2021-08-27] MEDS ORDERED: metFORMIN 500 MG TAB PO STA (11:25)
[2021-08-27 11:32] LABS: Glucose,Whole Blood 178 mg/dL (70-110)
--- NOTE | 2021-08-27 13:19 | P.PN ---
Subjective Progress Note Date: 08/27/21 CHIEF COMPLAINT: Abdominal wall abscess HISTORY OF PRESENT ILLNESS: The patient is a 45-year-old male with abdominal wall abscess. He is status post drainage 08/25/21. His pain is improving. No fevers. ROS: No reports of nausea and vomiting. No bowel movements. No fevers or chills. No new chest pain. No productive sputum PHYSICAL EXAM: VITAL SIGNS: Reviewed CONSTITUTIONAL: Well developed and in no acute distress. EYES: Conjuctivae without sclera icterus. Extraocular movements grossly intact. HEAD, EARS, NOSE, THROAT: Moist buccal mucosa. Head is atraumatic, normocephalic. Hears conversational speech. No nasal drainage. RESPIRATORY: Non-labored respirations and equal bilateral excursions. CARDIOVASCULAR: Palpable 2+ radial pulses. ABDOMEN: Dressing clean dry and intact. MUSCULOSKELETAL: No gross deformity of the lower extremities noted. No clubbing. No cyanosis. SKIN: Good skin turgor. Well perfused. NEUROLOGIC: Cranial nerves II through XII grossly intact. No focal or lateralizing signs. PSYCH: Appropriate affect. Alert and oriented to person, place and time. CLINICAL LABS: Reviewed. WBC 8.6, normal from yesterday. ASSESSMENT: 1. Abdominal wall abscess PLAN: 1. Continue IV antibiotics. 2. Home healthcare pending. 3. Dressing changes daily. Objective - Vital Signs Vital signs: Vital Signs Temp 98.1 F 08/27/21 08:00 Pulse 85 08/27/21 08:00 Resp 17 08/27/21 08:00 BP 142/79 08/27/21 08:00 Pulse Ox 96 08/27/21 08:00 FiO2 Intake & Output 08/26/21 08/27/21 08/27/21 18:59 06:59 18:59 Intake Total 150 Output Total 175 Balance 150 -175 Weight 131.542 kg Intake: Intake, IV Titration 150 Amount ceFAZolin 2 gm In Sodium 150 Chloride 0.9% 50 ml @ 100 mls/hr IVPB Q8HR [facility] Rx# :[id number] Output: Urine 175 Other: Voiding Method Toilet Toilet # Voids 5 2 - Labs CBC & Chem 7: 08/26/21 05:35 08/26/21 05:35 Labs: Abnormal Lab Results - Last 24 Hours (Table) 07/08/26/21 08/27/21 Range/Units 17:01 20:37 02:34 POC Glucose (mg/dL) 258 H 264 H 171 H (70-110) mg/dL 08/27/21 08/27/21 Range/Units 07:09 11:30 POC Glucose (mg/dL) 120 H 178 H (70-110) mg/dL Microbiology - Last 24 Hours (Table) 08/21/21 19:05 Blood Culture - Preliminary Blood No Growth after 120 hours 08/21/21 19:20 Blood Culture - Preliminary Blood No Growth after 120 hours 08/25/21 15:28 Gram Stain - Preliminary Abdomen Wound Culture - Preliminary Presumptive Staph aureus
--- NOTE | 2021-08-27 14:00 | P.PN ---
Subjective Progress Note Date: 08/27/21 Postop day #2 status post abdominal incision and drainage. Cultures from abd wound are growing Staph species. Patient reports significant improvement in his abdominal wall pain. He has been afebrile, vital signs stable. He is tolerating a regular diet and has had bowel movements since surgery. Started on Metformin yesterday with improvement in blood glucose. Objective - Vital Signs Vital signs: Vital Signs Temp 98.1 F 08/27/21 08:00 Pulse 85 08/27/21 08:00 Resp 17 08/27/21 08:00 BP 142/79 08/27/21 08:00 Pulse Ox 96 08/27/21 08:00 FiO2 Intake & Output 08/26/21 08/27/21 08/27/21 18:59 06:59 18:59 Intake Total 150 Output Total 175 Balance 150 -175 Weight 131.542 kg Intake: Intake, IV Titration 150 Amount ceFAZolin 2 gm In Sodium 150 Chloride 0.9% 50 ml @ 100 mls/hr IVPB Q8HR [facility] Rx# :[id number] Output: Urine 175 Other: Voiding Method Toilet Toilet # Voids 5 2 - Exam General: Obese male, in no acute distress, awake alert and oriented Derm: warm, dry Head: atraumatic, normocephalic Eyes: EOMI, pupils equal round reactive to light Mouth: no lip lesion, mucus membranes moist Cardiovascular: S1S2 reg, no murmur, positive posterior tibial pulse bilateral, Lungs: CTA bilateral, no rhonchi, no rales , no accessory muscle use Abdominal: Midabdominal wall dressing in place, one appears to be intact, no discharge, no bleeding, minimal tenderness, erythema and edema have improved Ext: no gross muscle atrophy, no edema, no contractures Neuro: CN II-XI grossly intact, no focal neuro deficits Psych: Alert, oriented, appropriate affect - Labs CBC & Chem 7: 08/26/21 05:35 08/26/21 05:35 Labs: Abnormal Lab Results - Last 24 Hours (Table) 08/26/21 08/26/21 08/27/21 Range/Units 17:01 20:37 02:34 POC Glucose (mg/dL) 258 H 264 H 171 H (70-110) mg/dL 08/27/21 08/27/21 Range/Units 07:09 11:30 POC Glucose (mg/dL) 120 H 178 H (70-110) mg/dL Microbiology - Last 24 Hours (Table) 08/21/21 19:05 Blood Culture - Preliminary Blood No Growth after 120 hours 08/21/21 19:20 Blood Culture - Preliminary Blood No Growth after 120 hours 08/25/21 15:28 Gram Stain - Preliminary Abdomen Wound Culture - Preliminary Presumptive Staph aureus Assessment and Plan Plan: #Abdominal wall cellulitis -Postop day #2 status post incision and drainage -wound cultures growing staphylococcus species. unlikely to be MRSA since patient is improving clinically on Cefazolin -Resume IV cefazolin for now, antibiotics will be adjusted once sensitivities finalized -unlikely to need IV antibiotics at discharge -Blood culture negative to date #Type 2 diabetes mellitus with uncontrolled hyperglycemia -Patient not on any medication at home -A1c 9.6 started on insulin this admission. Metformin added yesterday with improved glycemic control -diabetic diet #Morbid obesity BMI 41 -Weight loss and exercises recommended -Nutrition services consulted #DVT prophylaxis with subcutaneous heparin #Full code anticipated DC home with homecare tomorrow Time with Patient: Less than 30
[2021-08-27 16:50] LABS: Glucose,Whole Blood 159 mg/dL (70-110)
[2021-08-27 20:30] LABS: Glucose,Whole Blood 216 mg/dL (70-110)
[2021-08-27] MEDS: INSULIN DETEMIR (LEVEMIR) 100 UNIT/ML SYR SQ SCH (21:11)
--- NOTE | 2021-08-28 01:24 | P.PN ---
Subjective Progress Note Date: 08/27/21 Principal diagnosis: Abdominal wall cellulitis and abscess Patient is a 45-year-old male presenting to Hospital with abdominal wall pain swelling redness has been diagnosed with abdominal wall cellulitis and possible abscess. Patient is status post surgical drainage of abdominal wall abscess and cultures completed on 08/25/2021 on today's evaluation that is 08/27/2021, the patient continues to be afebrile, the patient denies any worsening pain to the right lower abdominal wall wound area, the patient denies chest pain shortness of breath or cough and no diarrhea Objective - Vital Signs Vital signs: Vital Signs Temp 98.1 F 08/27/21 08:00 Pulse 85 08/27/21 08:00 Resp 17 08/27/21 08:00 BP 142/79 08/27/21 08:00 Pulse Ox 96 08/27/21 08:00 FiO2 Intake & Output 08/26/21 08/27/21 08/27/21 18:59 06:59 18:59 Intake Total 150 Output Total 175 Balance 150 -175 Weight 131.542 kg Intake: Intake, IV Titration 150 Amount ceFAZolin 2 gm In Sodium 150 Chloride 0.9% 50 ml @ 100 mls/hr IVPB Q8HR [facility] Rx# :[id number] Output: Urine 175 Other: Voiding Method Toilet Toilet # Voids 5 2 - Exam GENERAL DESCRIPTION: Middle-aged male lying in bed in no distress RESPIRATORY SYSTEM: Unlabored breathing , decreased breath sounds at bases HEART: S1 S2 regular rate and rhythm , ABDOMEN: Soft , right lower abdominal wall wound post surgical drainage surrounding induration has improved no purulent drainage EXTREMITIES: No edema feet - Labs CBC & Chem 7: 08/26/21 05:35 08/26/21 05:35 Labs: Abnormal Lab Results - Last 24 Hours (Table) 08/26/21 08/26/21 08/27/21 Range/Units 17:01 20:37 02:34 POC Glucose (mg/dL) 258 H 264 H 171 H (70-110) mg/dL 08/27/21 08/27/21 Range/Units 07:09 11:30 POC Glucose (mg/dL) 120 H 178 H (70-110) mg/dL Microbiology - Last 24 Hours (Table) 08/21/21 19:05 Blood Culture - Preliminary Blood No Growth after 120 hours 08/21/21 19:20 Blood Culture - Preliminary Blood No Growth after 120 hours 08/25/21 15:28 Gram Stain - Preliminary Abdomen Wound Culture - Preliminary Presumptive Staph aureus Assessment and Plan (1) Abdominal wall cellulitis Current Visit: Yes Status: Acute Code(s): L03.311 - CELLULITIS OF ABDOMINAL WALL SNOMED Code(s): 06334335 Plan: 1patient presented to hospital with sepsis in this patient who did have a fever low-grade tachycardia mild elevated white count source likely lower abdominal wall cellulitis started with trauma likely from gram-positive skin za less likely risk factor for MRSA or gram-negative infection. 2 patient is status post surgical drainage and deep culture which are currently growing MSSA 3the patient has shown clinical improvement and will continue with cefazolin 2 g every 8 hours for another 24-48hrs before transferring him to oral antibiotics local care of abdominal wound with Aquacel silver packing Time with Patient: Less than 30
[2021-08-28 02:17] LABS: Glucose,Whole Blood 135 mg/dL (70-110)
[2021-08-28 05:50] LABS: Glucose,Whole Blood 102 mg/dL (70-110)
[2021-08-28] MEDS: INSULIN ASPART (NovoLOG) 100 UNIT/ML VIAL SQ SCH ×7 (06:55→20:26)
[2021-08-28] MEDS: HEPARIN SODIUM,PORCINE/PF 5,000 UNIT/0.5 ML SYRINGE SQ SCH ×3 (07:09→20:27)
[2021-08-28] MEDS: metFORMIN 500 MG TAB PO SCH ×2 (07:09→17:42)
--- NOTE | 2021-08-28 10:09 | P.PN ---
Subjective Progress Note Date: 08/28/21 Hospital Course Patient is a 45-year-old male presenting to Hospital with abdominal wall pain swelling redness has been diagnosed with abdominal wall cellulitis and possible abscess. Patient is status post surgical drainage of abdominal wall abscess and cultures completed on 08/25/2021 Cultures from abd wound are growing Staph species. Patient reports significant improvement in his abdominal wall pain. He has been afebrile, vital signs stable. He is tolerating a regular diet and has had bowel movements since surgery. Started on Metformin yesterday with improvement in blood glucose. Subjective Patient seen at bedside, doing well no CP and SOB , clinically improving , No new complaints, All qs answered at bedside Objective General: Obese male, in no acute distress, awake alert and oriented Derm: warm, dry Head: atraumatic, normocephalic Eyes: EOMI, pupils equal round reactive to light Mouth: no lip lesion, mucus membranes moist Cardiovascular: S1S2 reg, no murmur, positive posterior tibial pulse bilateral, Lungs: CTA bilateral, no rhonchi, no rales , no accessory muscle use Abdominal: Midabdominal wall dressing in place, one appears to be intact, no discharge, no bleeding, minimal tenderness, erythema and edema have improved Ext: no gross muscle atrophy, no edema, no contractures Neuro: CN II-XI grossly intact, no focal neuro deficits Psych: Alert, oriented, appropriate affect Assessment and Plan #Abdominal wall cellulitis with abscess formation -Status post incision and drainage by general surgery, culture growing staphylococcus species. unlikely to be MRSA since patient is improving clinically on Cefazolin -Continue IV cefazolin -Infection disease and general surgery following #Type 2 diabetes mellitus with uncontrolled hyperglycemia -Patient not on any medication at home -A1c 9.6 started on insulin this admission. Metformin added yesterday with improved glycemic control -diabetic diet #Morbid obesity BMI 41 -Weight loss and exercises recommended -Nutrition services consulted #DVT prophylaxis with subcutaneous heparin #Full code Discharge plan: Likely back to home on Sunday/Sunday pending clinical improvement and clearance from infection disease and general surgery Objective - Vital Signs Vital signs: Vital Signs Temp 97.6 F 08/28/21 07:55 Pulse 88 08/28/21 07:55 Resp 20 08/28/21 07:55 BP 130/69 08/28/21 07:55 Pulse Ox 96 08/28/21 07:55 FiO2 Intake & Output 07/16/22 07/17/22 07/17/22 18:59 06:59 18:59 Other: Voiding Method Toilet Toilet # Voids 3 # Bowel Movements 4 - Labs CBC & Chem 7: 08/26/21 05:35 08/26/21 05:35 Labs: Abnormal Lab Results - Last 24 Hours (Table) 08/27/21 08/27/21 08/27/21 Range/Units 11:30 16:48 20:29 POC Glucose (mg/dL) 178 H 159 H 216 H (70-110) mg/dL 08/28/21 Range/Units 02:16 POC Glucose (mg/dL) 135 H (70-110) mg/dL Microbiology - Last 24 Hours (Table) 08/25/21 15:28 Anaerobic Culture - Preliminary Abdomen Rhonda albicans 08/21/21 19:20 Blood Culture - Final Blood No Growth after 144 hours 08/21/21 19:05 Blood Culture - Final Blood No Growth after 144 hours 08/25/21 15:28 Gram Stain - Final Abdomen Wound Culture - Final Staphylococcus aureus
[2021-08-28] MEDS: MORPHINE SULFATE 4 MG/ML SYRINGE IV PRN (10:55)
[2021-08-28 11:18] LABS: Glucose,Whole Blood 132 mg/dL (70-110)
--- NOTE | 2021-08-28 12:36 | P.PN ---
Subjective Progress Note Date: 08/28/21 CHIEF COMPLAINT: Abdominal wall abscess HISTORY OF PRESENT ILLNESS: The patient is a 45-year-old male with abdominal wall abscess. He is status post drainage 08/25/21. Patient reports dressing changes are every other day. No increased abdominal pain. He is tolerating diet. ROS: No reports of nausea and vomiting. No bowel movements. No fevers or chills. No new chest pain. No productive sputum PHYSICAL EXAM: VITAL SIGNS: Reviewed CONSTITUTIONAL: Well developed and in no acute distress. EYES: Conjuctivae without sclera icterus. Extraocular movements grossly intact. HEAD, EARS, NOSE, THROAT: Moist buccal mucosa. Head is atraumatic, normocephalic. Hears conversational speech. No nasal drainage. RESPIRATORY: Non-labored respirations and equal bilateral excursions. CARDIOVASCULAR: Palpable 2+ radial pulses. ABDOMEN: Dressing clean dry and intact. MUSCULOSKELETAL: No gross deformity of the lower extremities noted. No clubbing. No cyanosis. SKIN: Good skin turgor. Well perfused. NEUROLOGIC: Cranial nerves II through XII grossly intact. No focal or lateralizing signs. PSYCH: Appropriate affect. Alert and oriented to person, place and time. CLINICAL LABS: Reviewed. BSG 102 to 210. ASSESSMENT: 1. Abdominal wall abscess PLAN: 1. Dressing change to every other day. Objective - Vital Signs Vital signs: Vital Signs Temp 97.6 F 08/28/21 07:55 Pulse 88 08/28/21 07:55 Resp 20 08/28/21 07:55 BP 130/69 08/28/21 07:55 Pulse Ox 96 08/28/21 07:55 FiO2 Intake & Output 08/27/21 08/28/21 08/28/21 18:59 06:59 18:59 Other: Voiding Method Toilet Toilet Toilet # Voids 3 # Bowel Movements 4 - Labs CBC & Chem 7: 08/26/21 05:35 08/26/21 05:35 Labs: Abnormal Lab Results - Last 24 Hours (Table) 08/27/21 08/27/21 08/28/21 Range/Units 16:48 20:29 02:16 POC Glucose (mg/dL) 159 H 216 H 135 H (70-110) mg/dL 08/28/21 Range/Units 11:17 POC Glucose (mg/dL) 132 H (70-110) mg/dL Microbiology - Last 24 Hours (Table) 08/25/21 15:28 Anaerobic Culture - Preliminary Abdomen Rhonda albicans 08/21/21 19:20 Blood Culture - Final Blood No Growth after 144 hours 08/21/21 19:05 Blood Culture - Final Blood No Growth after 144 hours 08/25/21 15:28 Gram Stain - Final Abdomen Wound Culture - Final Staphylococcus aureus
[2021-08-28] MEDS: diphenhydrAMINE 25 MG CAP PO PRN (12:41)
[2021-08-28 16:18] LABS: Glucose,Whole Blood 210 mg/dL (70-110)
[2021-08-28 20:09] LABS: Glucose,Whole Blood 181 mg/dL (70-110)
[2021-08-28] MEDS: INSULIN DETEMIR (LEVEMIR) 100 UNIT/ML SYR SQ SCH (20:26)
[2021-08-29 02:04] LABS: Glucose,Whole Blood 153 mg/dL (70-110)
[2021-08-29 06:46] LABS: Glucose,Whole Blood 119 mg/dL (70-110)
[2021-08-29] MEDS: INSULIN ASPART (NovoLOG) 100 UNIT/ML VIAL SQ SCH ×6 (07:35→16:41)
[2021-08-29] MEDS: HEPARIN SODIUM,PORCINE/PF 5,000 UNIT/0.5 ML SYRINGE SQ SCH ×2 (07:35→12:42)
[2021-08-29] MEDS: metFORMIN 500 MG TAB PO SCH ×2 (07:39→16:42)
[2021-08-29] MEDS: diphenhydrAMINE 25 MG CAP PO PRN (07:40)
--- NOTE | 2021-08-29 07:54 | P.PN ---
Subjective Progress Note Date: 08/28/21 Principal diagnosis: Abdominal wall cellulitis and abscess Patient is a 45-year-old male presenting to Hospital with abdominal wall pain swelling redness has been diagnosed with abdominal wall cellulitis and possible abscess. Patient is status post surgical drainage of abdominal wall abscess and cultures completed on 08/25/2021 on today's evaluation that is 08/28/2021, the patient remains to be afebrile, the patient pain to the right lower abdominal wall wound area has decreased in intensity, the patient denies chest pain shortness of breath or cough and no deandre rrhea Objective - Vital Signs Vital signs: Vital Signs Temp 97.6 F 08/28/21 07:55 Pulse 88 08/28/21 07:55 Resp 20 08/28/21 07:55 BP 130/69 08/28/21 07:55 Pulse Ox 96 08/28/21 07:55 FiO2 Intake & Output 08/27/21 08/28/21 08/28/21 18:59 06:59 18:59 Other: Voiding Method Toilet Toilet Toilet # Voids 3 # Bowel Movements 4 - Exam GENERAL DESCRIPTION: Middle-aged male lying in bed in no distress RESPIRATORY SYSTEM: Unlabored breathing , decreased breath sounds at bases HEART: S1 S2 regular rate and rhythm , ABDOMEN: Soft , right lower abdominal wall wound post surgical drainage surrounding induration has decreased and there is no purulent drainage EXTREMITIES: No edema feet - Labs CBC & Chem 7: 08/26/21 05:35 08/26/21 05:35 Labs: Abnormal Lab Results - Last 24 Hours (Table) 08/27/21 08/27/21 08/28/21 Range/Units 16:48 20:29 02:16 POC Glucose (mg/dL) 159 H 216 H 135 H (70-110) mg/dL 08/28/21 Range/Units 11:17 POC Glucose (mg/dL) 132 H (70-110) mg/dL Microbiology - Last 24 Hours (Table) 08/25/21 15:28 Anaerobic Culture - Preliminary Abdomen Rhonda albicans 08/21/21 19:20 Blood Culture - Final Blood No Growth after 144 hours 08/21/21 19:05 Blood Culture - Final Blood No Growth after 144 hours 08/25/21 15:28 Gram Stain - Final Abdomen Wound Culture - Final Staphylococcus aureus Assessment and Plan (1) Abdominal wall cellulitis Current Visit: Yes Status: Acute Code(s): L03.311 - CELLULITIS OF ABDOMINAL WALL SNOMED Code(s): 78298082 Plan: 1patient presented to hospital with sepsis in this patient who did have a fever low-grade tachycardia mild elevated white count source likely lower abdominal wall cellulitis started with trauma likely from gram-positive skin za less likely risk factor for MRSA or gram-negative infection. 2 patient is status post surgical drainage and deep culture which are currently growing MSSA 3the patient has shown clinical improvement and will continue with cefazolin 2 g every 8 hours, will check his outpatient IV antibiotic coverage as patient benefit from short course of his symptoms and discharge if no good coverage will switch over to oral Keflex and close outpatient follow-up Time with Patient: Less than 30
[2021-08-29 08:32] LABS: Basophils # (A) 0.03 X 10*3/uL (0.00-0.10); Basophils % (A) 0.8 %; Eosinophils # (A) 0.13 X 10*3/uL (0.04-0.35); Eosinophils % (A) 3.3 %; HCT 40.4 % (39.6-50.0); HGB 13.3 g/dL (13.0-17.0); Immature Grans, Automated 0.8 %; Lymphocytes # (A) 0.89 X 10*3/uL (0.90-5.00); Lymphocytes % (A) 22.6 %; MCH 30.6 pg (27.0-32.0); MCHC 32.9 g/dL (32.0-37.0); MCV 92.9 fL (80.0-97.0); Mean Platelet Volume 9.9 fL (9.5-12.2); Monocytes # (A) 0.31 X 10*3/uL (0.20-1.00); Monocytes % (A) 7.9 %; NRBC Per 100 WBC 0 /100 WBCS (0.0-0.0); Neutrophils # (A) 2.55 X 10*3/uL (1.80-7.70); Neutrophils % (A) 64.6 %; Platelet Count 101 X 10*3/uL (140-440); RBC 4.35 X 10*6/uL (4.40-5.60); RDW 14.7 % (11.5-14.5); WBC 3.94 X 10*3/uL (4.50-10.00)
[2021-08-29 08:44] LABS: African American GFR (CKD) 151.7 (60.0-200.0); Albumin 2.6 g/dL (3.8-4.9); Albumin/Globulin Ratio 0.96 (1.60-3.17); Anion Gap 6.8 mmol/L (10.00-18.00); Calcium 8.2 mg/dL (8.7-10.3); Carbon Dioxide 25.2 mmol/L (20.0-27.5); Globulin 2.7 g/dL (1.6-3.3); Non-African American GFR(CKD) 130.9 (60.0-200.0); Potassium 3.9 mmol/L (3.5-5.5); Total Bilirubin 0.7 mg/dL (0.30-1.20); Total Protein 5.3 g/dL (6.2-8.2)
[2021-08-29 11:24] LABS: Glucose,Whole Blood 137 mg/dL (70-110)
[2021-08-29] MEDS ORDERED: HYDROcodone/APAP 5-325MG 1 EACH TAB PO PRN (11:34)
--- NOTE | 2021-08-29 11:35 | P.PN ---
Subjective Progress Note Date: 08/29/21 CHIEF COMPLAINT: Abdominal wall abscess HISTORY OF PRESENT ILLNESS: Patient is status post incision and drainage of abdominal wall abscess. Postop day #4. Patient reports that he is feeling better. His pain is controlled. He only needs to pain medication for dressing changes. Denies any nausea or vomiting. He's scheduled for mid line placement for outpatient IV antibiotics today. They're discussing possible discharge later today or tomorrow. Afebrile. WBC 3.94 Hgb 13.3 platelets 101 glucose 137. Culture results growing MSSA and Rhonda albicans PHYSICAL EXAM: VITAL SIGNS: Reviewed. GENERAL: Well-developed in no acute distress. HEENT: No sclera icterus. Extraocular movements grossly intact. Moist buccal mucosa. Head is atraumatic, normocephalic. ABDOMEN: Soft. Obese Nondistended. Decrease in tenderness with palpation. Decrease in erythema. Dressing shows serosanguineous drainage. NEUROLOGIC: Alert and oriented. Cranial nerves II through XII grossly intact. ASSESSMENT: 1. Abdominal wall abscess status post incision and drainage 2. Diabetes mellitus PLAN: -Continue antibiotics per infectious disease -Continue local wound care -Continue supportive care -Add norco prn pain for dressing changes Physician Glue Mill Operator note has been reviewed by physician. Signing provider agrees with the documented findings, assessment, and plan of care. I have personally seen and examined the patient, reviewed the CHIEF TECHNICAL OFFICER /PAs history, exam and MDM and agree with the assessment and plan as written. Based on total visit time, I have performed more than 50% of the visit. As above: Patient doing well today. Pain is better. Area of erythema is markedly improved. Cultures noted. Agree with plans for discharge. Follow-up 2 weeks. Objective - Vital Signs Vital signs: Vital Signs Temp 97.6 F 08/29/21 08:00 Pulse 82 08/29/21 08:00 Resp 16 08/29/21 08:00 BP 155/85 08/29/21 08:00 Pulse Ox 96 08/29/21 08:00 FiO2 Intake & Output 08/28/21 08/29/21 08/29/21 18:59 06:59 18:59 Intake Total 2100 Balance 2100 Intake: Intake, IV Titration 100 Amount ceFAZolin 2 gm In Sodium 100 Chloride 0.9% 50 ml @ 100 mls/hr IVPB Q8HR [facility] Rx# :[id number] Oral 2000 Other: Voiding Method Toilet Toilet # Voids 4 4 # Bowel Movements 1 - Labs CBC & Chem 7: 08/29/21 05:29 08/29/21 05:29 Labs: Abnormal Lab Results - Last 24 Hours (Table) 08/28/21 08/28/21 08/29/21 Range/Units 16:17 20:07 02:02 WBC (4.50-10.00) X 10*3/uL RBC (4.40-5.60) X 10*6/uL RDW (11.5-14.5) % Plt Count (140-440) X 10*3/uL Lymphocytes # (0.90-5.00) X 10*3/uL Anion Gap (10.00-18.00) mmol/L Creatinine (0.6-1.5) mg/dL Glucose (70-110) mg/dL POC Glucose (mg/dL) 210 H 181 H 153 H (70-110) mg/dL Calcium (8.7-10.3) mg/dL AST (14-35) U/L Total Protein (6.2-8.2) g/dL Albumin (3.8-4.9) g/dL Albumin/Globulin Ratio (1.60-3.17) g/dL 08/29/21 08/29/21 08/29/21 Range/Units 05:29 05:29 06:44 WBC 3.94 L (4.50-10.00) X 10*3/uL RBC 4.35 L (4.40-5.60) X 10*6/uL RDW 14.7 H (11.5-14.5) % Plt Count 101 L (140-440) X 10*3/uL Lymphocytes # 0.89 L (0.90-5.00) X 10*3/uL Anion Gap 6.80 L (10.00-18.00) mmol/L Creatinine 0.5 L (0.6-1.5) mg/dL Glucose 127 H (70-110) mg/dL POC Glucose (mg/dL) 119 H (70-110) mg/dL Calcium 8.2 L (8.7-10.3) mg/dL AST 43 H (14-35) U/L Total Protein 5.3 L (6.2-8.2) g/dL Albumin 2.6 L (3.8-4.9) g/dL Albumin/Globulin Ratio 0.96 L (1.60-3.17) g/dL 08/29/21 Range/Units 11:22 WBC (4.50-10.00) X 10*3/uL RBC (4.40-5.60) X 10*6/uL RDW (11.5-14.5) % Plt Count (140-440) X 10*3/uL Lymphocytes # (0.90-5.00) X 10*3/uL Anion Gap (10.00-18.00) mmol/L Creatinine (0.6-1.5) mg/dL Glucose (70-110) mg/dL POC Glucose (mg/dL) 137 H (70-110) mg/dL Calcium (8.7-10.3) mg/dL AST (14-35) U/L Total Protein (6.2-8.2) g/dL Albumin (3.8-4.9) g/dL Albumin/Globulin Ratio (1.60-3.17) g/dL
[2021-08-29 15:21] VITALS: BP 136/73; PULSE 91; RESP 18; TEMP 98.2
--- NOTE | 2021-08-29 15:30 | P.DS ---
Providers Date of admission: 08/22/21 09:23 Expected date of discharge: 08/29/21 Attending physician: Reynaldo Rabago MD Consults: 08/22/21 09:37 Consult Physician Routine Consulting Provider: Oralia Cabello Consult Reason/Comments: abdominal cellulitis, antibiotic management Do you want consulting provider notified?: Yes 08/23/21 16:24 Consult Physician Routine Consulting Provider: Roger Garcia Consult Reason/Comments: possible abdominal wall abscess Do you want consulting provider notified?: Yes Primary care physician: Stated None Hospital Course: Discharge Diagnosis: Abdominal wall cellulitis with abscess Type 2 diabetes with hyperglycemia, A1c 9.6 Morbid obesity with BMI 41.6 Splenomegaly- durther outpatient evlauation. Hospital Course: Patient is a 45-year-old male with a history of prediabetes and obesity who presented with pain and redness of the abdominal wall. CT abdomen and pelvis d emonstrated moderate splenomegaly, nonobstructing right renal calculus, subcutaneous edema over the anterior midline of increased density related to phlebotomy for abscess, mild mesenteric edema, and splenic varices consistent with portal venous hypertension. He underwent extensive evaluation and diagnosed with abdominal wall abscess with cellulitis. He was started on antibiotics. He underwent ultrasound which showed cellulitis and phlegmon. Surgery was consulted he underwent operative I&D on 08/25 came back with methicillin sensitive staph aureus. He was seen by infectious disease who rec ommended 2 weeks of outpatient IV Rocephin. His A1c was checked and came back at 9.6. He continued to improve his white blood cell count normalized. He was determined stable for discharge home. He will have home health following up for dressing changes and wound care, he will follow up with LIZETTE CULVER for daily infusions of Rocephin. He will follow with Dr. Cabello in 1 week. He will establish a primary care physician for his newly discovered diabetes. He has been prescribed NovoLog 5 mg 3 times daily as well as Levemir 18 units daily. He will continue with his metformin thousand milligrams twice daily. He will make a log of his blood sugars to bring to his first primary care. He will need outpatient evaluation of his splenomegaly. Patient seen and examined at bedside. He will be staying with his aunt and uncle who can help with dressing changes. All questions answered. Pain is manageable at this time. No other complaints currently. Vital signs reviewed and stable. General: nontoxic, no distress, appears at stated age Derm: warm, dry Head: atraumatic, normocephalic, symmetric Eyes: EOMI, no lid lag, anicteric sclera Mouth: no lip lesion, mucus membranes moist Cardiovascular: S1S2 reg, no murmur, positive posterior tibial pulse bilateral, Lungs: CTA bilateral, no rhonchi, no rales , no accessory muscle use Abdominal: soft, nontender to palpation, no guarding, no appreciable organomegaly, dressing in place over midline clean/dry/intact. Ext: no gross muscle atrophy, trace edema, no contractures Neuro: CN II-XI grossly intact, no focal neuro deficits Psych: Alert, oriented, appropriate affect A total of 35 minutes of time were spent preparing this complex discharge summary. Patient was discharged on 08/29/21. Patient Condition at Discharge: Stable Plan - Discharge Summary Discharge Rx Participant: Yes New Discharge Prescriptions: New Insulin Detemir [Levemir Flextouch Pen] 18 units SQ DAILY #5 pen metFORMIN HCL 1,000 mg PO BID #60 tab HYDROcodone/APAP 7.5-325MG [Ewing 7.5-325] 1 tab PO Q6HR PRN 3 Days #12 tab PRN Reason: Pain Insulin Aspart [NovoLOG Flexpen] 5 units SQ AC-TID #5 pen cefTRIAXone [Rocephin] 2,000 mg IVP Q24HR #10 each Continue Ibuprofen [Motrin Ib] 400 - 600 mg PO Q8H PRN PRN Reason: Pain Acetaminophen Tab [Tylenol] 1,000 mg PO Q6HR PRN PRN Reason: Pain Discharge Medication List Acetaminophen Tab [Tylenol] 1,000 mg PO Q6HR PRN 08/21/21 [History] Ibuprofen [Motrin Ib] 400 - 600 mg PO Q8H PRN 08/21/21 [History] HYDROcodone/APAP 7.5-325MG [Ewing 7.5-325] 1 tab PO Q6HR PRN 3 Days #12 tab 08/29/21 [Rx] Insulin Aspart [NovoLOG Flexpen] 5 units SQ AC-TID #5 pen 08/29/21 [Rx] Insulin Detemir [Levemir Flextouch Pen] 18 units SQ DAILY #5 pen 08/29/21 [Rx] cefTRIAXone [Rocephin] 2,000 mg IVP Q24HR #10 each 08/29/21 [Rx] metFORMIN HCL 1,000 mg PO BID #60 tab 08/29/21 [Rx] Follow up Appointment(s)/Referral(s): Roger Garcia MD [Medical Doctor] - 09/07/21 3:30 pm [facility] [place] [facility], [NON-STAFF] - As Needed ([facility] will call you to set up your in home nursing visits. ) [facility],Infusion [NON-STAFF] - 08/30/21 2:00 pm None,Stated [Primary Care Provider] - 1-2 days Genna Day [NON-STAFF] - As Needed (Take prescription and notes for dressing supplies to [facility] at [address] [facility] in [place]. ) Oralia Cabello MD [STAFF PHYSICIAN] - 09/06/21 2:30 pm Geovanni Caldwell MD [STAFF PHYSICIAN] - 1 Week (new patient. patient to call.) Activity/Diet/Wound Care/Special Instructions: Activity: as tolerated Diet: consistent carb diet Special Instructions: Check blood sugar 3 times daily and make a record of the number with date and time. You will need a work-up for an enlarged spleen once your infection is resolved. This can be done with Dr. Caldwell (primary care). Aquacel silver rope packing of the wound changed every 48 hour, patient advised to follow-up with Dr. Cabello in the center 1 week, call [phone] to make an appointment Patient will need an rx for wound care supplies at discharge. *Glucometer and testing supplies are at [facility] at [facility] ($42.43) Discharge/Stand Alone Forms: Work/School Release / Restrict
--- NOTE | 2021-08-30 12:20 | CDI ---
Documentation Clarification Form Date: 08/30/21 From: Jacqueline Huntley Admit Date: 08/22/2021 09:23:00 AM Patient Name: Geoffrey Medrano Visit Number: [id number] Discharge Date: 08/29/2021 04:47:00 PM ATTENTION: The Clinical Documentation Specialists (CDI) and [facility] Coding Staff appreciate your assistance in clarifying documentation. Please respond to the clarification below the line at the bottom and electronically sign. The CDI & [facility] Coding staff will review the response and follow-up if needed. Please note: Queries are made part of the Legal Health Record. If you have any questions, please contact the author of this message via ITS. Dr. Celena Greenberg, Dr Cabello documents sepsis in his consult and progress notes, but is not noted in subsequent documentation. Clarification is requested. History/Risk Factors: portal HTN and splenic varices, morbid obesity, T2 DM w hyperglycemia Clinical Indicators: WBC 10.7, NEUTROPHILS 9.2, ESR 41, CRP 12.9, lactic acid 1.9 T 99.8, P 112, R 20, BP 150/75, O2 93 Treatment: IV antibiotics, Insulin, incision and drainage of abdominal abscess Please clarify if the [insert diagnosis] is: [ X ] Sepsis POA [ ] Sepsis ruled out [ ] Other condition, please specify [ ] Unable to determine MTDD
== END 2021-08-29 16:47 | disposition home health service (06) | DRG 854 ==
LOC: EC 16:35 → 4SSUR 22:36 → OBSVTOIN 08-22 09:23
PROVIDERS: ADMIT Internal Medicine; ATTEND Internal Medicine
PROC: 0W9F0ZZ Drainage of Abdominal Wall, Open Approach (ICD-10-PCS; principal; 2021-08-25 14:45)
PROC: 05HC33Z Insertion of Infusion Device into Left Basilic Vein, Percutaneous Approach (ICD-10-PCS; 2021-08-29 15:25)
DX: A41.9 Sepsis, unspecified organism (principal); K76.6 Portal hypertension; L02.211 Cutaneous abscess of abdominal wall; Z68.41 Body mass index [BMI] 40.0-44.9, adult; L03.311 Cellulitis of abdominal wall; E66.01 Morbid (severe) obesity due to excess calories; E11.65 Type 2 diabetes mellitus with hyperglycemia; E78.5 Hyperlipidemia, unspecified; I86.8 Varicose veins of other specified sites; N20.0 Calculus of kidney; W01.190A Fall on same level from slipping, tripping and stumbling with subsequent striking against furniture, initial encounter; Y92.009 Unspecified place in unspecified non-institutional (private) residence as the place of occurrence of the external cause; Z71.3 Dietary counseling and surveillance; Z91.010 Allergy to peanuts
CPT/HCPCS: 36410; 36415; 74177; 76705; 76937; 80048; 80053; 81001; 83036; 83605; 83930; 83935; 84300; 85025; 85652; 86140; 87040; 87070; 87075; 87077; 87086; 87186; 87205; 96365; 96366; 96367; 96375; 99285